=== PATIENT | male | born 1955 | race Caucasian/White ===

== ENCOUNTER 2017-01-21 15:46 | Observation (INO) | payer BC ==
[~2017-01-21] VITALS: Ht 175.3 cm; Wt 80.0 kg
[~2017-01-21 15:46] MED LIST: AMBI10TA PO; ASPI81 PO; ATOR20TA42 PO; CLOP75 PO; FENO50TA PO; FISH1000 PO; IOHEXOL 350 MG/ML 100 ML BTL (for Cath Lab) OTHER ONE; METO25 PO; NITR0.4S SL; TAB-TAB PO; TYLE3 PO
[2017-01-21 15:51] VITALS: BP 164/84; PULSE 75; RESP 16; TEMP 98; O2SAT 97
[2017-01-21] MEDS ORDERED: SODIUM CHLORIDE 0.9% FLUSH 10 ML FLUSH IVF PRN (16:00)
[2017-01-21] MEDS ORDERED: ONDANSETRON HCL 4 MG/2 ML VIAL IV PUSH ONE (16:00)
[2017-01-21] MEDS ORDERED: MORPHINE SULFATE 4 MG/ML INJ IV PUSH ONE (16:00)
[2017-01-21] MEDS ORDERED: NITROGLYCERIN 2% OINT 1 GM PACKET TOP ONE (16:00)
[2017-01-21] MEDS ORDERED: NIAS1000 PO (16:01)
[2017-01-21] MEDS ORDERED: METO-309 PO (16:01)
[2017-01-21] MEDS ORDERED: PLAV75TA29 PO (16:01)
[2017-01-21] MEDS ORDERED: ASPI81CH CHEW (16:01)
[2017-01-21] MEDS ORDERED: FENO50TA PO (16:01)
[2017-01-21 16:12] VITALS: O2SAT 98
[2017-01-21] MEDS ORDERED: ASPIRIN 81 MG CHEW TAB CHEW ONE (16:30)
[2017-01-21 16:33] LABS: AUTOMATED NEUTROPHIL # 4.6 TH/MM3 (1.8-7.7); BASOPHIL % 0.4 % (0.0-2.0); EOSINOPHIL # 0.1 TH/MM3 (0-0.4); EOSINOPHIL % 1.6 % (0.0-4.0); HEMATOCRIT 39.2 % (39.0-51.0); HEMO FLAGS DIFF FINAL; LYMPH % 27.1 % (9.0-44.0); LYMPHOCYTE # 1.9 TH/MM3 (1.0-4.8); MEAN CELL VOLUME 93.3 FL (80.0-100.0); MEAN CORPUSCULAR HEMOGLOBIN 32.5 PG (27.0-34.0); MEAN CORPUSCULAR HGB CONC 34.8 % (32.0-36.0); MONO % 8.1 % (0.0-8.0); NEUT % 62.8 % (16.0-70.0); PLATELET COUNT 213 TH/MM3 (150-450); RED BLOOD COUNT 4.21 MIL/MM3 (4.50-5.90); RED CELL DISTRIBUTION WIDTH 12.5 % (11.6-17.2); WHITE BLOOD COUNT 7.2 TH/MM3 (4.0-11.0)
--- NOTE | 2017-01-21 16:39 | RADRPT ---
EXAM DATE/TIME: 01/21/2017 16:14 [place] COMPARISON: No previous studies available for comparison. INDICATIONS : Chest pain that started this morning in left chest. MEDICAL HISTORY : None. SURGICAL HISTORY : None. ENCOUNTER: Initial ACUITY: 1 day PAIN SCORE: 2/10 LOCATION: Left chest FINDINGS: A single view of the chest demonstrates the lungs to be symmetrically aerated without evidence of mas s, infiltrate or effusion. The cardiomediastinal contours are unremarkable. Osseous structures are intact. CONCLUSION: No acute disease. Aneudy Garcia MD on January 21, 2017 at 16:37 Board Certified Radiologist. This report was verified electronically.
[2017-01-21 16:48] LABS: APTT (PATIENT) 23.9 SEC (24.3-30.1)
[2017-01-21 16:57] LABS: CHLORIDE 101 MEQ/L (98-107); POTASSIUM 3.7 MEQ/L (3.5-5.1); SODIUM (NA) 136 MEQ/L (136-145)
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
[2017-01-21 17:01] LABS: ANION GAP 10 MEQ/L (5-15); BICARBONATE 25.1 MEQ/L (21.0-32.0); BLOOD UREA NITROGEN 12 MG/DL (7-18); MAGNESIUM 2.2 MG/DL (1.5-2.5)
[2017-01-21 17:04] LABS: GLOMERULAR FILTRATION RATE 80 ML/MIN (>89)
[2017-01-21 17:25] VITALS: BP 140/81; PULSE 58; RESP 14; O2SAT 97
[2017-01-21 17:34] LABS: CREATINE KINASE 112 U/L (39-308)
[2017-01-21] MEDS ORDERED: ONDANSETRON HCL 4 MG/2 ML VIAL IVP PRN (18:15)
[2017-01-21] MEDS ORDERED: LACTULOSE SYRUP 20 GM/30 ML CUP PO PRN (18:15)
[2017-01-21] MEDS ORDERED: MORPHINE SULFATE 4 MG/ML INJ IV PRN (18:15)
[2017-01-21] MEDS ORDERED: MAGNESIUM HYDROXIDE SUSP 30 ML CUP PO PRN (18:15)
[2017-01-21] MEDS ORDERED: NALOXONE HCL 0.4 MG/ML AMP IV PRN (18:15)
[2017-01-21] MEDS ORDERED: SODIUM CHLORIDE 0.9% FLUSH 10 ML FLUSH IV FLUSH PRN (18:15)
[2017-01-21] MEDS ORDERED: NITROGLYCERIN 0.4 MG SL 25 TABS/BTL SL PRN (19:15)
--- NOTE | 2017-01-21 19:21 | HHI.HP ---
[facility] Service [facility] Primary Care Physician Jason Pérez MD Admission Diagnosis Chest Pain Diagnoses: (1) Chest pain Diagnosis: Principal (2) Coronary artery disease Diagnosis: Principal (3) [place] (myocardial infarction) Diagnosis: Secondary (4) Hyperlipidemia Diagnosis: Secondary Travel History International Travel<30 Days: No Contact w/Intl Traveler <30 Da: No Traveled to Known Affected Are: No History of Present Illness Mr. Tobias is a 61-year-old male. He is in the emergency room today because of episodes of angina today. He has a history of coronary artery disease and has had 3 coronary stents in the ears 1999, 2004, and 2009. His last stress test was in 2013 and did not show any abnormalities to indicate a repeat stent at that time. 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 This morning he had an episode of severe chest pain that radiated to his left arm and right shoulder. The pain was tight and felt similar to his myocardial infarction that he had in 1999. She rested and the pain resolved. He's had several recurrent episodes of this throughout the day and decided to come into the emergency department. Pain is not reproducible with movement or deep breathing. He has a history of smoking in the past (type) and quit in year 1999 when he had a myocardial infarction. No other complaints. Family history is positive for coronary artery disease, [place], and CHF in his father. No history of diabetes. Review of Systems Constitutional: DENIES: Fatigue, Fever, Chills Eyes: DENIES: Blurred vision, Diplopia, Eye inflammation, Vision loss Ears, nose, mouth, throat: DENIES: Tinnitus, Hearing loss, Vertigo Respiratory: DENIES: Cough, Wheezing, Sputum production Cardiovascular: COMPLAINS OF: Chest pain, DENIES: Palpitations, Syncope Gastrointestinal: DENIES: Abdominal pain, Black stools, Bloody stools Musculoskeletal: DENIES: Joint pain, Muscle aches, Stiffness Integumentary: DENIES: Abnormal pigmentation Hematologic/lymphatic: DENIES: Bruising Immunologic/allergic: DENIES: Eczema Neurologic: DENIES: Abnormal gait, Headache, Paresthesias Psychiatric: DENIES: Anxiety, Confusion, Hallucinations Past Family Social History Past Medical History Old [place], 1999 coronary artery disease Hyperlipidemia Past Surgical History Tonsillectomy Appendectomy Coronary stents in years 1999, 2004, and 2009 Reported Medications Reported Meds & Active Scripts Active Reported Tricor (Fenofibrate) 145 Mg Tab 145 Mg PO EVERY OTHER DAY Takw with food. Niaspan (Niacin ER) 1,000 Mg Tab 500 Mg PO HS Plavix (Clopidogrel Bisulfate) 75 Mg Tab 75 Mg PO DAILY Aspirin 81 Mg Chew 81 Mg CHEW DAILY Lopressor (Metoprolol Tartrate) 50 Mg Tab 12.5 Mg PO BID Allergies: Coded Allergies: No Known Allergies (Verified , 01/21/17) Family History CHF and myocardial infarction and coronary artery disease in father Pituitary tumor and mother Social History Ld-kbpfowp-gh-alcohol-abuse- Zy-bkppszq-ya-drug-abuse- Kemozpx-nq-hsepnxc, patient quit in year 1999 Physical Exam Vital Signs Vital Signs Date Time Temp Pulse Resp B/P (MAP) Pulse Ox O2 Delivery O2 Flow Rate FiO2 01/21/17 17:25 58 14 140/81 (100) 97 Room Air 01/21/17 16:35 96 Room Air 01/21/17 16:30 14 01/21/17 16:12 98 Room Air 01/21/17 15:51 98.0 75 16 164/84 (110) 97 Physical Exam GENERAL: NAD, A&Ox3 HEAD: Normocephalic. NECK: Supple, trachea midline. No lymphadenopathy. EYES: No scleral icterus. No injection or drainage. CARDIOVASCULAR: Regular rate and rhythm without murmurs, gallops, or rubs. RESPIRATORY: Breath sounds equal bilaterally. No accessory muscle use. GASTROINTESTINAL: Abdomen soft, non-tender, nondistended. MUSCULOSKELETAL: No cyanosis, or edema. No tenderness is starting SKIN: Warm and dry. NEURO: No focal neurological deficitis. Laboratory Laboratory Tests Test 01/21/17 16:09 White Blood Count 7.2 Red Blood Count 4.21 Hemoglobin 13.7 Hematocrit 39.2 Mean Corpuscular Volume 93.3 Mean Corpuscular Hemoglobin 32.5 Mean Corpuscular Hemoglobin Concent 34.8 Red Cell Distribution Width 12.5 Platelet Count 213 Mean Platelet Volume 8.0 Neutrophils (%) (Auto) 62.8 Lymphocytes (%) (Auto) 27.1 Monocytes (%) (Auto) 8.1 Eosinophils (%) (Auto) 1.6 Basophils (%) (Auto) 0.4 Neutrophils # (Auto) 4.6 Lymphocytes # (Auto) 1.9 Monocytes # (Auto) 0.6 Eosinophils # (Auto) 0.1 Basophils # (Auto) 0.0 CBC Comment DIFF FINAL Differential Comment Prothrombin Time 11.0 Prothromb Time International Ratio 1.0 Activated Partial Thromboplast Time 23.9 Blood Urea Nitrogen 12 Creatinine 0.95 Random Glucose 123 Calcium Level 9.0 Magnesium Level 2.2 Sodium Level 136 Potassium Level 3.7 Chloride Level 101 Carbon Dioxide Level 25.1 Anion Gap 10 Estimat Glomerular Filtration Rate 80 Total Creatine Kinase 112 Creatine Kinase MB 1.0 Troponin I LESS THAN 0.02 Result Diagram: 01/21/17 1609 01/21/17 160 Lonnie VTE Risk Assessment Caprin VTE Risk Assessment: Mod/High Risk (score >= 2) Caprini Risk Assessment Model Point Value = 1 Point Value = 2 Point Value = 3 Point Value = 5 Age 41-60 Minor surgery BMI > 25 kg/m2 Swollen legs Varicose veins or History of unexplained or recurrent spontaneous Oral contraceptives or hormone replacement Sepsis (< 1 month) Serious lung disease, including pneumonia (< 1 month) Abnormal pulmonary function Acute myocardial infarction Congestive heart failure (< 1 month) History of inflammatory bowel disease Medical patient at bed rest Age 61-74 Arthroscopic surgery Major open surgery (> 45 min) Laparoscopic surgery (> 45 min) Malignancy Confined to bed (> 72 hours) Immobilizing plaster cast Central venous access Age >= 75 History of VTE Family history of VTE Factor V Leiden Prothrombin [id number] Lupus anticoagulant Anticardiolipin antibodies Elevated serum homocysteine Heparin-induced thrombocytopenia Other congenital or acquired thrombophilia Stroke (< 1 month) Elective arthroplasty Hip, pelvis, or leg fracture Acute spinal cord injury (< 1 month) Prophylaxis Regimen Total Risk Factor Score Risk Level Prophylaxis Regimen 0-1 Low Early ambulation 2 Moderate Order ONE of the following: *Sequential Compression Device (SCD) *Heparin 5000 units SQ BID 3-4 Higher Order ONE of the following medications: *Heparin 5000 units SQ TID *Enoxaparin/Lovenox 40 mg SQ daily (WT < 150 kg, CrCl > 30 mL/min) *Enoxaparin/Lovenox 30 mg SQ daily (WT < 150 kg, CrCl > 10-29 mL/min) *Enoxaparin/Lovenox 30 mg SQ BID (WT < 150 kg, CrCl > 30 mL/min) AND/OR *Sequential Compression Device (SCD) 5 or more Highest Order ONE of the following medications: *Heparin 5000 units SQ TID (Preferred with Epidurals) *Enoxaparin/Lovenox 40 mg SQ daily (WT < 150 kg, CrCl > 30 mL/min) *Enoxaparin/Lovenox 30 mg SQ daily (WT < 150 kg, CrCl > 10-29 mL/min) *Enoxaparin/Lovenox 30 mg SQ BID (WT < 150 kg, CrCl > 30 mL/min) AND *Sequential Compression Device (SCD) Assessment and Plan Problem List: (1) Old [place] (myocardial infarction) ICD Code: I25.2 - Old myocardial infarction (2) Chest pain ICD Code: R07.9 - Chest pain, unspecified (3) Hyperlipidemia ICD Code: E78.5 - Hyperlipidemia, unspecified (4) Coronary artery disease ICD Code: I25.10 - Atherosclerotic heart disease of [place] coronary artery without angina pectoris Assessment and Plan Assessment and plan 61-year-old male with history of coronary artery disease comes to the emergency department secondary to chest pain Angina [place] Coronary artery disease History of coronary stents 3 Evaluate for ACS Follow cardiac enzymes Aspirin daily When necessary oxygen When necessary morphine for pain. When necessary nitroglycerin Follow on telemetry Cardiology consult Plavix Hyperlipidemia Continue TriCor Hold niacin for now Statin Lipid profile in a.m. DVT prophylaxis Roby Woods MD Jan 21, 2017 19:21
[2017-01-21] MEDS ORDERED: PILL SPLITTER OTHER PRN (19:30)
[2017-01-21 19:37] VITALS: BP 140/83; PULSE 68; RESP 18; O2SAT 97
[2017-01-21 20:00] VITALS: BP 121/85; PULSE 61; RESP 20; TEMP 96.7; O2SAT 96
[2017-01-21] MEDS ORDERED: ENOXAPARIN SODIUM 40 MG/0.4 ML SYRINGE SQ SCH (20:00)
[2017-01-21] MEDS ORDERED: ATORVASTATIN 10 MG TAB PO SCH (21:00)
[2017-01-21] MEDS: METOPROLOL TARTRATE 25 MG TAB PO SCH (21:02)
[2017-01-21] MEDS: SODIUM CHLORIDE 0.9% FLUSH 10 ML FLUSH IV FLUSH SCH (21:02)
[2017-01-21 22:54] LABS: CREATINE KINASE 84 U/L (39-308)
[2017-01-21 23:00] VITALS: PULSE 58
[2017-01-22] VITALS (13 sets, daily range): BP systolic 118–159; BP diastolic 76–91; PULSE 51–76; RESP 16–18; TEMP 96.5–98.6; O2SAT 95–99
[2017-01-22 04:46] LABS: CREATINE KINASE 77 U/L (39-308)
[2017-01-22 05:57] LABS: AUTOMATED NEUTROPHIL # 3.2 TH/MM3 (1.8-7.7); BASOPHIL % 0.5 % (0.0-2.0); EOSINOPHIL # 0.2 TH/MM3 (0-0.4); EOSINOPHIL % 2.7 % (0.0-4.0); HEMATOCRIT 37.8 % (39.0-51.0); HEMO FLAGS DIFF FINAL; LYMPH % 34.7 % (9.0-44.0); LYMPHOCYTE # 2.1 TH/MM3 (1.0-4.8); MEAN CELL VOLUME 93.3 FL (80.0-100.0); MEAN CORPUSCULAR HEMOGLOBIN 32.2 PG (27.0-34.0); MEAN CORPUSCULAR HGB CONC 34.5 % (32.0-36.0); MONO % 9.2 % (0.0-8.0); NEUT % 52.9 % (16.0-70.0); PLATELET COUNT 186 TH/MM3 (150-450); RED BLOOD COUNT 4.05 MIL/MM3 (4.50-5.90); RED CELL DISTRIBUTION WIDTH 12.6 % (11.6-17.2); WHITE BLOOD COUNT 6.1 TH/MM3 (4.0-11.0)
[2017-01-22 05:59] LABS: CHLORIDE 102 MEQ/L (98-107); POTASSIUM 3.6 MEQ/L (3.5-5.1); SODIUM (NA) 136 MEQ/L (136-145)
[2017-01-22 06:03] LABS: ANION GAP 8 MEQ/L (5-15); BICARBONATE 25.7 MEQ/L (21.0-32.0); BLOOD UREA NITROGEN 13 MG/DL (7-18)
[2017-01-22 06:05] LABS: ALT (GPT) 24 U/L (12-78)
[2017-01-22 06:06] LABS: AST (GOT) 20 U/L (15-37); GLOMERULAR FILTRATION RATE 98 ML/MIN (>89)
[2017-01-22 06:07] LABS: TOTAL BILIRUBIN ADULT 0.6 MG/DL (0.2-1.0)
[2017-01-22 06:09] LABS: ALKALINE PHOSPHATASE 57 U/L (45-117)
--- NOTE | 2017-01-22 08:12 | EKG ---
Date Performed: 01/22/2017 Time Performed: 04:29:06 PTAGE: 61 years EKG: SINUS BRADYCARDIA LOW QRS VOLTAGE IN EXTREMITY LEADS NONSPECIFIC T-WAVE ABNORMALITY BORDERL INE ECG PREVIOUS TRACING : 01/21/2017 22.11 No significant change from previous tracing noted. DOCTOR: Shahram Jean Interpretating Date/Time 01/22/2017 08:11:56
[2017-01-22] MEDS: SODIUM CHLORIDE 0.9% FLUSH 10 ML FLUSH IV FLUSH SCH ×2 (08:17→20:11)
[2017-01-22] MEDS: METOPROLOL TARTRATE 25 MG TAB PO SCH ×2 (09:00→20:11)
[2017-01-22] MEDS ORDERED: ASPIRIN 81 MG CHEW TAB CHEW SCH (09:00)
[2017-01-22 09:45] LABS: HDL CHOLESTEROL 34.6 MG/DL (40.0-60.0)
--- NOTE | 2017-01-22 11:36 | EKG ---
Date Performed: 01/21/2017 Time Performed: 22:11:23 PTAGE: 61 years EKG: Sinus rhythm LOW QRS VOLTAGE IN EXTREMITY LEADS POSSIBLE INFERIOR MYOCARDIAL INFARCTION BORDERLINE ECG PREVIOUS TRACING : 01/21/2017 15.52 No significant change from previous tracing noted. DOCTOR: Shahram Jean Interpretating Date/Time 01/22/2017 11:34:44
[2017-01-22] MEDS: CLOPIDOGREL 75 MG TAB PO SCH (11:40)
--- NOTE | 2017-01-22 11:47 | EKG ---
Date Performed: 01/21/2017 Time Performed: 15:52:33 PTAGE: 61 years EKG: Sinus rhythm POSSIBLE INFERIOR MYOCARDIAL INFARCTION ABNORMAL ECG NO PREVIOUS TRACING DOCTOR: Shahram Jean Interpretating Date/Time 01/22/2017 11:46:56
--- NOTE | 2017-01-22 13:21 | HHI.PR ---
Subjective Remarks Cardiac enzymes are negative. EKG changes are nonspecific. No further episodes of chest pain. Patient is resting. Given his exertional chest pain yesterday and past medical history stress test has been deferred so he is evaluated by cardiology. Patient is being transferred to [facility] with his campaign marketing manager. Objective Vital Signs Date Time Temp Pulse Resp B/P (MAP) Pulse Ox O2 Delivery O2 Flow Rate FiO2 01/22/17 11:33 98.6 55 17 135/87 (103) 95 01/22/17 08:45 96.7 51 16 124/77 (93) 97 01/22/17 04:00 96.5 59 16 119/76 (90) 95 01/22/17 00:00 97.4 53 18 118/83 (95) 97 01/21/17 23:00 58 01/21/17 20:00 96.7 61 20 121/85 (97) 96 01/21/17 19:37 68 18 140/83 (102) 97 Room Air 01/21/17 17:25 58 14 140/81 (100) 97 Room Air 01/21/17 16:35 96 Room Air 01/21/17 16:30 14 01/21/17 16:12 98 Room Air 01/21/17 15:51 98.0 75 16 164/84 (110) 97 I/O 01/21/17 01/21/17 01/21/17 01/22/17 01/22/17 01/22/17 06:59 14:59 22:59 06:59 14:59 22:59 Output Total 800 ml Balance -800 ml Output Urine Total 800 ml # Voids 2 Result Diagram: 01/22/1727 01/22/17526 Objective Remarks GENERAL: NAD, A&Ox3 HEAD: Normocephalic. NECK: Supple, trachea midline. No lymphadenopathy. EYES: No scleral icterus. No injection or drainage. CARDIOVASCULAR: Regular rate and rhythm without murmurs, gallops, or rubs. RESPIRATORY: Breath sounds equal bilaterally. No accessory muscle use. GASTROINTESTINAL: Abdomen soft, non-tender, nondistended. MUSCULOSKELETAL: No cyanosis, or edema. SKIN: Warm and dry. NEURO: No focal neurological deficitis. A/P Problem List: (1) Old [place] (myocardial infarction) ICD Code: I25.2 - Old myocardial infarction (2) Chest pain ICD Code: R07.9 - Chest pain, unspecified (3) Hyperlipidemia ICD Code: E78.5 - Hyperlipidemia, unspecified (4) Coronary artery disease ICD Code: I25.10 - Atherosclerotic heart disease of [place] coronary artery without angina pectoris Assessment and Plan Assessment and plan 61-year-old male with history of coronary artery disease comes to the emergency department secondary to chest pain. Negative cardiac enzymes. No overt signs of acute RI on EKG. Transfer to [facility] for further workup which may include stress test or cardiac catheter per cardiology discretion. Angina [place] Coronary artery disease History of coronary stents 3 Continue workup at [facility] Negative cardiac enzymes Aspirin daily When necessary oxygen When necessary morphine for pain. When necessary nitroglycerin Follow on telemetry Cardiology following Plavix Hyperlipidemia Continue TriCor Hold niacin for now Statin Lipid profile in a.m. DVT prophylaxis Roby Woods MD Jan 22, 2017 13:21
[2017-01-22] MEDS ORDERED: HEPARIN-NS/PF INJ 1,000 ML ONE (14:53)
[2017-01-22] MEDS ORDERED: MIDAZOLAM HCL 2 MG/2 ML VIAL ONE ×4 (14:53→16:12)
[2017-01-22] MEDS ORDERED: HEPARIN SODIUM - IV 10,000 UNITS/10 ML VIAL ONE (15:31)
[2017-01-22] MEDS ORDERED: HEPARIN-NS/PF INJ 500 ML ONE (16:28)
[2017-01-22] MEDS ORDERED: CLOPIDOGREL 300 MG TAB ONE (16:49)
[2017-01-22] MEDS ORDERED: ASPIRIN 81 MG CHEW TAB ONE (16:49)
--- NOTE | 2017-01-22 17:13 | CATHPROC ---
[facility] HIS Report Study Information Study Number Admission Scheduled Start Study Start [id number] Jan 21 2017 6:10PM 01/22/2017 Jan 22 2017 2:56PM [place] Service Cardiac Catheterization Admit Source Facility Department Transfer in from another acute care facility [facility] Physician and Clinical Staff Initial Celina Roy Supervisor [employer] Arcenio RN, Luis Recorder Melissa Tucker,RT(R) Scrub Alen Ingram RCIS(BS) Procedures Performed Procedure Location (Site) Vessel Name Coronary Angiograms LCA Left Coronary Coronary Angiograms RCA Right Coronary L Heart Cath LV Gram-hand inj. LV LV Ventricle PTCA RCA Right Coronary PTCA RCA Mid Right Coronary Wire insertion Fem Art (right) Femoral Art Equipment Time Proof Machine Operator Description Size Mfg Part Number Used/Scraped [id number] 15:51 [employer] WIRE, ASAHI PROWATER 180CM 180CM Used *[id number] WIRE, BALANCE MIDDLEWEIGHT [id number] 16:24 [employer] 190CM Used 190CM *[id number] TRANSDUCER, TRUWAVE [id number] 15:14 FISHER BRADSHAW * Used W/STOCKCOCK *[id number] 15:30 [employer] AL 1 GUIDE CATHETER RUNWAY FR 6 Used *[id number] 16:07 [employer] BALLOON, 2.5 8MM EMERGE MR 2.5 8MM Used *[id number] 16:19 [employer] BALLOON, 3.0 12MM EMERGE MR 3.0 12MM Used *[id number] [id number] *[id number] 538-476 *9205243 538-420 *9152873 538-420 *1350151 538-453S *[id number] 538-453S *5859873 [phone] *[id number] 650352 16:49 DAIG/ST. ELEUTERIO MEDICAL ANGIOSEAL, FR6 VIP FR 6 Used *[id number] 15:14 MEDLINE INDUSTRIES PACK, CCL CUSTOM * Used *[id number] 15:14 MEDLINE PACER PEN, SKIN DUAL W/ RULER * Used *[id number] BALLOON, 3.0 X 12MM NC [id number] 15:56 MEDTRONIC 12MM Used EUPHORA *[id number] 15:57 [employer] MEDICAL 30 ANNEMARIE INDEFLATOR Used *[id number] 15:31 [employer] MEDICAL SHEATH, FR6.5 PRELUDE 11CM FR 6.5 038ACT Used *[id number] 15:14 [employer] MEDICAL WIRE, 3MMJ .035 180CM 180CM Used *[id number] PROBE COVER, STERILE [id number] 15:14 [employer] MEDICAL * Used ULTRASOUND W/ GEL *[id number] 15:14 NAMIC MANIFOLD, 4 PORT * Used *[id number] 15:14 NYCOMED OMNIPAQUE, 350 MG, 150ML 150ML [id number] Used 16:50 [employer]COMED OMNIPAQUE, 350 MG, 150ML 150ML [id number] Used [id number] 15:14 [facility] BLANKET,WARM AIR CCL * Used *[id number] 15:14 TERUMO MEDICAL SHEATH, FR4 TERUMO (10CM) FR 4 Used *[id number] 15:28 [employer] PRIME WIRE, VERRATA 185CM 185CM 41629 *[id number] Used Equipment Model, Serial, Lot Number and Expiration Data Description Model Number Serial Number Lot Number Expiration Date AL 1 GUIDE CATHETER RUNWAY [id number] 07-15-2019 BALLOON, 2.5 8MM EMERGE MR [id number] 08-08-2019 BALLOON, 3.0 X 12MM [place] [id number] 11-24-2018 EUPHORA BALLOON, 3.0 12MM EMERGE MR [id number] 08-22-2019 History: Current Medications Medication Dosage/Unit Route Frequency Last Date/Time Taken ASA LOPRESSOR PLAVIX LOVENOX Beta Mk History: Allergies Allergy Reaction No Known Allergies History: Risk Factors Family History of Hypertension Dyslipidemia Previous [place] Previous Heart Failure Premature CAD Yes Yes Yes Yes No Prior PCI Prior PCIDate Prior CABG Yes 05/17/2009 No Cerebrovascular Peripheral Artery Chronic Lung On Dialysis Diabetes Disease Disease Disease No No No No No History: Symptoms/Diagnosis Selection Items Chest pain History: Stress Tests Stress or Imaging Studies Performed No History: Other Current Smoker Method Quit No Cigarettes 17 Years Ago Labs Hgb (g/dl) Hct (%) RBC (MIL/MM3) WBC (l/cumm) Platelets (thousands) 11.60-17.00 35.00-51.00 4.00-5.90 4.00-11.00 150.00-450.00 13.1 37.8 4 6.1 186 Glucose (mg/dl) BUN (mg/dl) Creatinine (mg/dl) BUN:Creatinine (1:x) 74.00-106.00 7.00-18.00 0.50-1.30 10.00-20.00 110 13 0.8 16.3 Na (meq/l) K (meq/l) Cl (meq/l) CO2 (mmol/L) Ca (mg/dl) 136.00-145.00 3.50-5.10 98.00-107.00 21.00-32.00 8.50-10.10 136 3.6 102 25.7 8.3 PT (sec) PTT (sec) INR (PTT:PT) 9.80-11.60 24.30-30.10 0.90-1.10 11 23.9 1 Troponin I (ng/ml) CPK (u/l) CPK-MB (ng/ML) 0.02-0.05 26.00-308.00 0.50-3.60 0.02 77 1.0 Medication Medication Total Dose (Bolus/Oral) Medication Total Dosage/Unit ASPIRIN 325 mg FENTANYL 200 mcg HEPARIN 7000 units NTG (IC) 200 mcg PLAVIX 600 mg VERSED 7 mg Medications (Bolus/Oral) Medication Time Given Dosage/Unit Administered By Reason VERSED 01/22/2017 3:07:46 PM 2 mg Luis Rosas RN 2 mg VERSED given by Luis Rosas RN in Left Antecubital via Peripheral IV. FENTANYL 01/22/2017 3:08:00 PM 50 mcg Luis Rosas RN 50 mcg FENTANYL given by Luis Rosas RN in Left Antecubital via Peripheral IV. FENTANYL 01/22/2017 3:14:10 PM 25 mcg Luis Rosas RN 25 mcg FENTANYL given by Luis Rosas RN via Peripheral IV. VERSED 01/22/2017 3:15:19 PM 1 mg Luis Rosas RN 1 mg VERSED given by Luis Rosas RN via Peripheral IV. HEPARIN 01/22/2017 3:32:04 PM 5000 units Luis Rosas RN 5000 units HEPARIN given by Luis Rosas RN via Peripheral IV. FENTANYL 01/22/2017 3:37:42 PM 25 mcg Luis Rosas RN 25 mcg FENTANYL given by Luis Rosas RN via Peripheral IV. VERSED 01/22/2017 3:38:39 PM 2 mg Luis Rosas RN 2 mg VERSED given by Luis Rosas RN via Peripheral IV. VERSED 01/22/2017 3:45:56 PM 2 mg Luis Rosas RN 2 mg VERSED given by Luis Rosas RN via Peripheral IV. HEPARIN 01/22/2017 4:15:39 PM 1000 units Luis Rosas RN 1000 units HEPARIN given by Luis Rosas RN via Peripheral IV. NTG (IC) 01/22/2017 4:18:44 PM 200 mcg Alen Ingram 200 mcg NTG (IC) given in lab by Alen Ingram RCIS(BS) via Intra-coronary. FENTANYL 01/22/2017 4:25:25 PM 50 mcg Luis Rosas RN 50 mcg FENTANYL given in lab by Luis Rosas RN via Peripheral IV. HEPARIN 01/22/2017 4:30:00 PM 1000 units Luis Rosas RN 1000 units HEPARIN given in lab by Luis Rosas RN via Peripheral IV. ASPIRIN 01/22/2017 4:47:08 PM 325 mg Luis Rosas RN 325 mg ASPIRIN given in lab by Luis Rosas RN via Subcutaneous. PLAVIX 01/22/2017 4:51:42 PM 600 mg Luis Rosas RN 600 mg PLAVIX given in lab by Luis Rosas RN via Oral. FENTANYL 01/22/2017 4:51:56 PM 50 mcg Luis Rosas RN 50 mcg FENTANYL given in lab by Luis Rosas RN via Peripheral IV. Medication (Drip) Medication Time Given Dosage/Unit Concentration/Unit Diluent (ml) Solution IV Solutions 01/22/2017 2:58:25 PM 0 mL (IV) 500 NaCl .9 Patient arrived on IV Solutions in Left Antecubital via Peripheral IV. Pump/Drip Flow = 20 ml/hr usin g NaCl .9. Initial Case Assessment Cardiovascular HR Rhythm NIBP Chest Pain 59 reg 163/99 2 Edema Present Skin color Skin None Normal Warm Circulatory - Right Pulses Dorsalis Pedis Femoral 3 3 Scale (0,1,2,3,4,d) Circulatory - Left Pulses Dorsalis Pedis Femoral 3 3 Scale (0,1,2,3,4,d) Circulatory - Lower Extremities Color Lower Right Color Lower Left Normal Normal Neurological State Oriented to time-place- Alert Moves all extremities person Respiration - General Respiration Rate SpO2 (%) (B/min) 7 97 Final Case Assessment Cardiovascular HR Rhythm NIBP 71 reg 168/95 Edema Present Skin color Skin None Normal Warm Circulatory - Right Pulses Dorsalis Pedis Femoral 3 3 Scale (0,1,2,3,4,d) Circulatory - Left Pulses Dorsalis Pedis Femoral 3 3 Scale (0,1,2,3,4,d) Circulatory - Lower Extremities Color Lower Right Color Lower Left Normal Normal Neurological State Oriented to time-place- Alert Moves all extremities person Respiration - General Respiration Rate SpO2 (%) O2 (lpm) (B/min) 15 100 2 Chronological Log Time Study Chronological Log 14:45:54 Patient arrived via Bed. 14:45:59 Patient Name, D.O.B, / Armband Verified By R.N. 14:46:40 Pre-op and post- op instructions given; patient acknowledges understanding of instructions. 14:46:40 Verbal Stimulation=2 Physical Stimulation=2 Airway=2 Respiration=2 TOTAL=8. (0=absent, 1=li mited, 2=present) 14:57:06 Reference ECG taken Vitals capture started with the following parameters, Patient=Adult, Interval=5 min, Initial Pr pozpqs=325 mmHg, 14:57:08 Deflation Rate=5 mmHg, Cuff placed on Right Arm 14:57:59 Patient has been NPO for More than 6Hrs. 14:58:01 Skin Breakdown-none 14:58:17 Patient Warmer Placed on the Table. 14:58:18 A # 20 IV was noted in the Antecubital (left). Grade = 0 14:58:19 HR=75 bpm, EUUV=275/99 mmhg, SpO2=98.0 %, Resp=9 B/min, Pain=0, Javan=10, Teague=2 14:58:25 Patient arrived on IV Solutions in Left Antecubital via Peripheral IV. Pump/Drip Flow = 20 ml/hr using NaCl .9. 14:58:50 History and physical on the chart or being dictated. Assessment: Initial Case, HR=59 BPM, Rhythm=reg, UJJF=808/99 mmhg, Chest Pain=2, Edema=None, Co aravind=Normal, Skin = Warm Right Pulses: Evan Ped=3, Femoral=3 Left Pulses: Evan Ped=3, Femoral=3 14:58:51 Lower Right Extremities: Color=Normal Lower Left Extremities: Color=Normal Neurological: State=Alert, Ox3, LANDIS Respiration: Resp=7 B/min, SpO2=97 % 14:59:37 Bilateral groins prepped with 2% chlorhexidine, and with a 3 min. waiting time. 15:02:50 HR=61 bpm, SPNV=633/87 mmhg, SpO2=98.0 %, Resp=8 B/min, Pain=0, Javan=10, Teague=2 15:03:32 Pressure channel 1 zeroed. 15:07:45 HR=58 bpm, EMXF=521/86 mmhg, SpO2=98.0 %, Resp=8 B/min, Pain=0, Javan=10, Teague=2 15:07:46 2 mg VERSED given by Luis Rosas RN in Left Antecubital via Peripheral IV. 15:08:00 50 mcg FENTANYL given by Luis Rosas RN in Left Antecubital via Peripheral IV. 15:08:29 MD arrived. Time Out. Correct patient, correct procedure,correct physician, ,power injector not loaded with contrast with surgical 15:09:19 team present. Time Out Concurred by MD, individual staff and CRITICAL CARE RN in procedure 15:09:38 Case Start 15:09:40 Verbal Stimulation=2 Physical Stimulation=2 Airway=2 Respiration=2 TOTAL=8. (0=absent, 1=li mited, 2=present) 15:12:48 HR=75 bpm, CTQT=333/89 mmhg, SpO2=98.0 %, Resp=10 B/min, Pain=0, Javan=10, Teague=2 15:13:26 Access site was Right Femoral Artery. with ultrasound device 15:13:32 A wire was inserted via Fem Art (right). 15:13:35 A SHEATH, FR4 TERUMO (10CM) FR 4 was advanced into the Fem Art (right) using the Percutaneo us technique. 15:14:10 25 mcg FENTANYL given by Luis Rosas RN via Peripheral IV. A JL 4.0 INFINITI CATHETER FR 4 was advanced over a wire. OMNIPAQUE, 350 MG, 150ML 150ML was us ed for 15:14:15 injections. 15:15:19 1 mg VERSED given by Luis Rosas RN via Peripheral IV. Recorded Pressure: Ao, HR=72, Condition=Condition 1 15:15:57 (Aorta) Ao 145/76/104 15:16:14 The LCA was injected and visualized at various angles. OMNIPAQUE, 350 MG, 150ML 150ML used . 15:16:24 power injector loaded now by terese rosas and verified by vamsi ingram 15:16:56 Catheter was removed 15:17:43 HR=71 bpm, SPSP=828/84 mmhg, SpO2=97.0 %, Resp=11 B/min, Pain=0, Javan=10, Teague=2 A 3DRC INFINITI CATHETER FR 4 was advanced over a wire. OMNIPAQUE, 350 MG, 150ML 150ML was used for 15:18:02 injections. 15:18:22 The RCA was injected and visualized at various angles. OMNIPAQUE, 350 MG, 150ML 150ML used . 15:22:42 HR=74 bpm, UEUH=492/86 mmhg, SpO2=98.0 %, Resp=10 B/min, Pain=0, Javan=10, Teague=2 15:26:54 Catheter was removed 15:27:43 HR=70 bpm, UXXI=590/79 mmhg, SpO2=98.0 %, Resp=10 B/min, Pain=0, Javan=10, Teague=2 A PIGTAIL ANG. INFINITI CATHETER FR 4 was advanced over a wire. OMNIPAQUE, 350 MG, 150ML 150ML was used 15:28:00 for injections. Recorded Pressure: LV, HR=69, Condition=Condition 1 15:28:36 (Left Ventricle) LV 136/5/11 15:29:05 The LV was manually injected with 8 cc's and visualized. OMNIPAQUE, 350 MG, 150ML 150ML use d. Recorded Pressure: LV, Ao, HR=68, Condition=Condition 1 15:29:15 (Left Ventricle) LV 138/6/11, (Aorta) Ao 139/69/100 15:29:37 Catheter was removed A SHEATH, FR6.5 PRELUDE 11CM FR 6.5 was exchanged in the Fem Art (right). This was necessary in order to 15:30:59 accomodate a larger catheter. 15:32:04 5000 units HEPARIN given by Luis Rosas RN via Peripheral IV. 15:32:46 HR=69 bpm, YEKI=458/84 mmhg, SpO2=98.0 %, Resp=14 B/min, Pain=0, Javan=10, Teague=2 A AL 1 GUIDE CATHETER RUNWAY FR 6 was advanced over a wire. OMNIPAQUE, 350 MG, 150ML 150ML was used for 15:33:27 injections. 15:37:42 25 mcg FENTANYL given by Luis Rosas RN via Peripheral IV. 15:37:49 HR=71 bpm, TZEW=782/77 mmhg, SpO2=98.0 %, Resp=16 B/min, Pain=0, Javan=10, Teague=2 15:38:39 2 mg VERSED given by Luis Rosas RN via Peripheral IV. 15:39:13 Pressure channel 1 zeroed. 15:40:33 Activated Clotting Time Drawn 15:42:21 Pressure channel 1 zeroed. 15:42:46 HR=71 bpm, CBLP=254/85 mmhg, SpO2=98.0 %, Resp=21 B/min, Pain=0, Javan=10, Teague=2 15:45:06 A PRIME WIRE, VERRATA 185CM 185CM was inserted via Fem Art (right). 15:45:56 2 mg VERSED given by Luis Rosas RN via Peripheral IV. 15:46:44 ACT (Normal Range 90-180) = 269 15:46:58 Flow Wire was was placed in the RCA Mid. The FFR measures ~FFR~ percent. The IFR measures 0 .84 Percent. 15:47:45 HR=70 bpm, XLZY=610/84 mmhg, SpO2=97.0 %, Resp=16 B/min, Pain=0, Javan=10, Teague=2 15:50:58 A WIRE, ASAHI PROWATER 180CM 180CM was inserted via Fem Art (right). 15:52:48 HR=67 bpm, BKUP=593/84 mmhg, SpO2=98.0 %, Resp=15 B/min 15:55:38 Interventional wire has crossed the lesion A BALLOON, 3.0 X 12MM NC EUPHORA 12MM was inserted over WIRE, ASAHI PROWATER 180CM 180CM via th e RCA 15:56:07 Mid. 15:57:47 HR=69 bpm, RDPC=801/81 mmhg, SpO2=98.0 %, Resp=14 B/min, Pain=0, Javan=10, Teague=2 15:59:54 Balloon Removed. A BALLOON, 3.0 X 12MM NC EUPHORA 12MM was inserted over PRIME WIRE, VERRATA 185CM 185CM via the RCA 16:00:36 Mid. 16:02:48 HR=69 bpm, MMOJ=996/83 mmhg, SpO2=99.0 %, Resp=11 B/min, Pain=0, Javan=10, Teague=2 16:05:26 Balloon Removed. 16:07:23 A BALLOON, 2.5 8MM EMERGE MR 2.5 8MM was inserted over WIRE, ASAHI PROWATER 180CM 180CM via the RCA Mid. 16:07:51 HR=62 bpm, XFIY=586/91 mmhg, SpO2=98.0 %, Resp=16 B/min, Pain=0, Javan=10, Teague=2 A BALLOON, 2.5 8MM EMERGE MR 2.5 8MM over a WIRE, ASAHI PROWATER 180CM 180CM in the RCA Mid was inflated 16:10:15 using a 30 ANNEMARIE INDEFLATOR at 12 annemarie for 30 sec. A BALLOON, 2.5 8MM EMERGE MR 2.5 8MM over a WIRE, ASAHI PROWATER 180CM 180CM in the RCA Mid was inflated 16:11:59 using a 30 ANNEMARIE INDEFLATOR at 12 annemarie for 20 sec. A BALLOON, 2.5 8MM EMERGE MR 2.5 8MM over a WIRE, ASAHI PROWATER 180CM 180CM in the RCA Mid was inflated 16:12:21 using a 30 ANNEMARIE INDEFLATOR at 12 annemarie for 15 sec. 16:13:33 HR=64 bpm, GGEB=119/88 mmhg, SpO2=99.0 %, Resp=9 B/min, Pain=0, Javan=10, Teague=2 16:13:37 Balloon Removed. A BALLOON, 3.0 X 12MM NC EUPHORA 12MM was inserted over WIRE, ASAHI PROWATER 180CM 180CM via th e RCA 16:15:03 Mid. 16:15:39 1000 units HEPARIN given by Luis Rosas RN via Peripheral IV. 16:18:04 HR=65 bpm, RKEQ=743/85 mmhg, SpO2=98.0 %, Resp=15 B/min, Pain=0, Javan=10, Teague=2 16:18:44 200 mcg NTG (IC) given in lab by Alen Ingram RCIS(BS) via Intra-coronary. 16:19:06 Balloon Removed. A BALLOON, 3.0 12MM EMERGE MR 3.0 12MM was inserted over WIRE, ASAHI PROWATER 180CM 180CM via t he RCA 16:19:10 Mid. 16:21:50 The PRIME WIRE, VERRATA 185CM 185CM was removed. 16:22:55 HR=64 bpm, TAST=862/91 mmhg, SpO2=97.0 %, Resp=11 B/min, Pain=0, Javan=10, Teague=2 16:24:27 Balloon Removed. 16:25:25 50 mcg FENTANYL given in lab by Luis Rosas RN via Peripheral IV. 16:25:51 A WIRE, BALANCE MIDDLEWEIGHT 190CM 190CM was inserted via Fem Art (right). 16:27:56 HR=65 bpm, KGCS=245/90 mmhg, SpO2=98.0 %, Resp=15 B/min, Pain=0, Javan=10, Teague=2 A BALLOON, 3.0 12MM EMERGE MR 3.0 12MM was inserted over WIRE, BALANCE MIDDLEWEIGHT 190CM 190CM via 16:28:53 the RCA Mid. 16:30:00 1000 units HEPARIN given in lab by Luis Rosas RN via Peripheral IV. A BALLOON, 3.0 12MM EMERGE MR 3.0 12MM over a WIRE, BALANCE MIDDLEWEIGHT 190CM 190CM in the R CA was 16:30:02 inflated using a 30 ANNEMARIE INDEFLATOR at 10 annemarie for 45 sec. 16:30:56 ACT (Normal Range 90-180) = 236 A BALLOON, 3.0 12MM EMERGE MR 3.0 12MM over a WIRE, BALANCE MIDDLEWEIGHT 190CM 190CM in the R CA was 16:33:26 inflated using a 30 ANNEMARIE INDEFLATOR at 12 annemarie for 20 sec. 16:33:38 HR=66 bpm, LFRT=022/97 mmhg, SpO2=99.0 %, Resp=17 B/min, Pain=0, Javan=10, Teague=2 A BALLOON, 3.0 12MM EMERGE MR 3.0 12MM was inserted over WIRE, BALANCE MIDDLEWEIGHT 190CM 190CM via 16:37:07 the RCA Mid. A BALLOON, 3.0 12MM EMERGE MR 3.0 12MM over a WIRE, BALANCE MIDDLEWEIGHT 190CM 190CM in the RCA Mid 16:37:35 was inflated using a 30 ANNEMARIE INDEFLATOR at 14 annemarie for 30 sec. 16:37:58 HR=60 bpm, QHQC=166/97 mmhg, SpO2=99.0 %, Resp=13 B/min, Pain=0, Javan=10, Teague=2 A BALLOON, 3.0 12MM EMERGE MR 3.0 12MM over a WIRE, BALANCE MIDDLEWEIGHT 190CM 190CM in the RCA Mid 16:39:43 was inflated using a 30 ANNEMARIE INDEFLATOR at 12 annemarie for 20 sec. 16:40:46 Balloon Removed. 16:41:07 The RCA was injected and visualized at various angles. OMNIPAQUE, 350 MG, 150ML 150ML used . prowater 16:42:48 Wire removed 16:43:03 HR=58 bpm, GQOA=695/86 mmhg, VtK7=367.0 %, Resp=8 B/min, Pain=0, Javan=10, Teague=2 16:43:52 bmw Wire removed 16:44:02 guide Catheter was removed 16:47:08 325 mg ASPIRIN given in lab by Luis Rosas RN via Subcutaneous. 16:47:35 An injection in the Fem Art (right) was made through the SHEATH, FR6.5 PRELUDE 11CM FR 6.5. Assessment: Final Case, HR=71 BPM, Rhythm=reg, MVDR=216/95 mmhg, Edema=None, Color=Normal, Skin = Warm Right Pulses: Evan Ped=3, Femoral=3 Left Pulses: Evan Ped=3, Femoral=3 16:47:43 Lower Right Extremities: Color=Normal Lower Left Extremities: Color=Normal Neurological: State=Alert, Ox3, LANDIS Respiration: Resp=15 B/min, XhN2=936 %, O2=2 lpm 16:48:04 HR=68 bpm, DZTV=305/95 mmhg, SpO2=99.0 %, Resp=11 B/min, Pain=0, Javan=10, Teague=2 16:48:30 Catheter(s) removed without difficulty 16:48:44 ANGIOSEAL, FR6 VIP FR 6 placement in the Fem Art (right) 16:49:04 Case End 16:49:06 Sterile dressing applied to site 16:49:07 No case complications noted. 16:49:08 Cine recording checked. 16:49:10 Bedside Report will be given. 16:49:15 Contrast Scanned 16:49:38 A Left Heart Cath was performed. 16:51:42 600 mg PLAVIX given in lab by Luis Rosas RN via Oral. 16:51:56 50 mcg FENTANYL given in lab by Luis Rosas RN via Peripheral IV. 16:53:01 HR=65 bpm, KBZK=868/90 mmhg, SpO2=99.0 %, Resp=2 B/min, Pain=0, Javan=10, Teague=2 End Study - Contrast Media Used In Study Contrast Total Opened (mL) Total Used (mL) Total Wasted (mL) Omnipaque 200 200 0 End Study - Maximum Contrast Load Max Contrast Load (mL) 511.9 End Study - Radiation Exposure Fluoro Time (minutes) 29.6 End Study - Sheaths Sheaths Pulled By Sheath Hold Time (min) Celina Watson End Study - Patient Disposition Complications Transferred To Interventional Outcome No Regular Bed successful
[2017-01-22] MEDS ORDERED: SODIUM CHLOR 0.9% 1000 ML INJ 1,000 ML IV SCH (17:34)
[2017-01-22] MEDS ORDERED: BACITRACIN OINT 0.9 GM PKT TOP ONE (17:45)
[2017-01-22] MEDS ORDERED: MISC INFORMATION XX ONE (17:45)
[2017-01-22] MEDS ORDERED: SODIUM CHLOR 0.9% 250 ML INJ 250 ML IV PRN (17:45)
[2017-01-22] MEDS ORDERED: ASPIRIN 81 MG CHEW TAB PO SCH (17:45)
[2017-01-22] MEDS ORDERED: ACETAMINOPHEN 325 MG TAB PO PRN (17:45)
[2017-01-22] MEDS ORDERED: TEMAZEPAM 15 MG CAP PO PRN (17:45)
[2017-01-22] MEDS ORDERED: ATROPINE SULFATE 1 MG/ML VIAL IV PUSH PRN (17:45)
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
[2017-01-22] MEDS: MORPHINE SULFATE 4 MG/ML INJ IV PRN ×2 (20:11→22:57)
[2017-01-22] MEDS ORDERED: ATORVASTATIN 10 MG TAB PO SCH (21:00)
--- NOTE | 2017-01-22 21:21 | MP ---
cc: CELINA WATSON MD, GEORGE A. MD DATE OF SURGERY 01/22/17 INDICATION 1. Unstable angina. 2. Known severe coronary artery disease. Procedure: 1 Cath 4f bilateral coronaries and LV gram 2 Sedation 3 6 F guide, angioplasty with low pressure compliant balloon then high pressure noncompliant balloon, expansion of in stent restenosis of the 2010 m stent. 4. Ifr with ifr of .84 5. Femoral angiogram 6. Angioseal CONSENT Full informed consent was obtained prior to procedure. Risks of , bleeding, myocardial infarction, perforation, aspiration, renal failure, foreseen and unforeseen complications reviewed. The patient fully appeared to understand the risks. PROCEDURE IN DETAIL The patient and prepped and draped in usual manner. Right femoral artery was entered using a micropuncture technique with ultrasound; via the 4-Barbadian sheath , left and right coronary catheters were used to intubated left coronaries, the Pigtail catheter the left ventricle. Multiple angiographic views were carried out. The 4-Barbadian sheath was exchanged for a 6-Barbadian sheath. Via the 6-Barbadian sheath, an XRB right catheter was used to intubate the right coronary.A IFR wire was passed across the high-grade right coronary in -stent restenosis. A reading of 0.84 Was obtained and this was considered significant. Heparin was given prior to this. ACT was obtained. Further aliquots of heparin were given. We had a very difficult time passing a compliant balloon across the lesion, so we switched to a noncompliant balloon and finally a noncompliant 2.5 mm x 8 mm balloon was passed. Following this a 3.0 Compliant balloon was passed with difficulty after using a double wire technique and another wire, a BMW. Following this, a noncompliant balloon 3.0 was passed across the restenotic stent and inflated to 14 atmospheres for about 30 seconds. Multiple inflations were carried out. Finally, at the end of the procedure an angiogram was performed. Intracoronary nitroglycerin was used during the procedure. Finally a femoral angiogram was done and an Angio-Seal was placed in the usual manner and the patient returned to his room in stable condition. Findings: The left main was free of significant disease. The left anterior descending artery was a large vessel. The diagonal branch was tortuous and free of significant disease. The circumflex was medium to large sized. There was a medium to large first obtuse marginal branch that was tortuous and medium second obtuse marginal branch that was tortuous. The right coronary artery was dominant and large and was diffusely diseased throughout its Length. There was evidence of previously placed stents including a proximal, a mid Stent and distal stents. There was evidence of severe disease throughout the RCA vessels. In the proximal portion was a very eccentric 90% instent stenosis that was best seen in the HESS view. There was also further disease of approximately 50% in the distal vessel. Following this, another 50% stenosis.The distal vessel was Diffusely diseased. There was a large posterior descending artery and posterolateral branch. CONCLUSION Severe Single vessel disease of the right coronary noted. Successful angioplasty carried out of the 90% in-stent restenosis of the mid right coronary, reduced to 20%.It would be very difficult to pass a stent across this very tortuous lesion. If there is a recurrence we may consider bypass surgery. Celina Watson MD, FRCP,[facility] BELTRAN/ /5:01 PM /9:00 PM PROSPER
[2017-01-23] VITALS (11 sets, daily range): BP systolic 125–135; BP diastolic 70–75; PULSE 62–81; RESP 16–18; TEMP 97.8–98.5; O2SAT 96–97
--- NOTE | 2017-01-23 07:29 | PD.CARD.PN ---
Subjective Subjective Remarks UNEVENTFUL EVENING NO COMPLAINTS OF CHEST PAIN OR SOB Objective Medications Current Medications Medications (Trade) Dose Ordered Sig/Whitley Route Start Time Stop Time Status Last Admin (NS Flush) 2 ml UNSCH PRN IV FLUSH 01/21/17 18:15 (NS Flush) 2 ml BID IV FLUSH 01/21/17 21:00 01/22/17 20:11 (Zofran Inj) 4 mg Q6H PRN IVP 01/21/17 18:15 (Morphine Inj) 2 mg Q3H PRN IV 01/21/17 18:15 01/22/17 22:57 (Morphine Inj) 4 mg Q3H PRN IV 01/21/17 18:15 (Narcan Inj) 0.4 mg UNSCH PRN IV 01/21/17 18:15 (Milk Of Magnesia Liq) 30 ml Q12H PRN PO 01/21/17 18:15 (Lactulose Liq) 30 ml DAILY PRN PO 01/21/17 18:15 (Plavix) 75 mg DAILY PO 01/22/17 09:00 01/22/17 11:40 (Tricor) 145 mg EVERY OTHER DAY PO 01/23/17 09:00 (Lopressor) 12.5 mg BID PO 01/21/17 21:00 01/22/17 20:11 (Nitrostat Sl) 0.4 mg Q5M PRN SL 01/21/17 19:15 (Pill Splitter) 1 ea UNSCH PRN OTHER 01/21/17 19:30 (Tylenol) 325 mg Q4H PRN PO 01/22/17 17:45 (Restoril) 15 mg HS PRN PO 01/22/17 17:45 (Aspirin Chew) 81 mg DAILY PO 01/22/17 17:45 (Atropine Inj) 0.5 mg UNSCH PRN IV PUSH 01/22/17 17:45 Sodium Chloride 250 ml @ 500 mls/hr ONCE PRN IV 01/22/17 17:45 01/23/17 17:44 (Lipitor) 10 mg HS PO 01/22/17 21:00 01/22/17 20:11 Vital Signs / I&O Vital Signs Date Time Temp Pulse Resp B/P (MAP) Pulse Ox O2 Delivery O2 Flow Rate FiO2 01/23/17 06:16 65 01/23/17 05:59 66 01/23/17 04:20 69 01/23/17 03:40 98.5 66 16 125/75 (92) 97 01/23/17 03:32 70 01/23/17 02:33 81 01/23/17 01:07 63 01/23/17 00:04 62 01/22/17 23:49 98.4 71 18 159/84 (109) 97 01/22/17 23:00 74 01/22/17 22:00 66 01/22/17 21:00 66 01/22/17 20:00 70 01/22/17 20:00 98.1 74 16 141/85 (103) 99 01/22/17 19:00 76 01/22/17 18:01 69 01/22/17 17:00 98.6 66 18 156/79 (104) 95 01/22/17 17:00 66 01/22/17 13:33 96.9 62 18 134/91 (105) 98 01/22/17 11:33 98.6 55 17 135/87 (103) 95 01/22/17 08:45 96.7 51 16 124/77 (93) 97 I/O 01/22/17 01/22/17 01/22/17 01/23/17 01/23/17 01/23/17 07:00 15:00 23:00 07:00 15:00 23:00 Intake Total 650 ml Output Total 950 ml Balance -300 ml Intake Oral 650 ml Output Urine Total 950 ml Physical Exam NAD ANICTERIC. ELENA FLAT JVD LUNGS CLEAR RRR, NO MURMURS ABD BENIGN EXTR WITHOUT EDEMA Assessment and Plan Assessment and Plan ASHD, UNSTABLE ANGINA S/P PTCA RCA INSTENT RESTENOSIS PLAN: CONTINUE ASA AND PLAVIX NOT ON B-BLOCKERS 2/2 RESTING BRADYCARDIA PLEASE ALSO DC ON ATORVASTATIN 80 MG QD AND LISINOPRIL 5 MG QD INSTRUCTED TO FOLLOW UP WITH MIRIAM MORALES/DEAN 1-2 WEEKS FOR REEVALUATION OK TO DC FROM CARDIAC STANDPOINT Discussed Condition With PATIENT Helio Mohan MD Jan 23, 2017 07:29
[2017-01-23] MEDS: MORPHINE SULFATE 4 MG/ML INJ IV PRN (07:59)
[2017-01-23] MEDS ORDERED: LISI-519 PO (08:13)
[2017-01-23] MEDS ORDERED: ATOR1TAB18 PO (08:13)
--- NOTE | 2017-01-23 08:13 | HHI.DCPOC ---
Discharge Care Plan Diagnosis: (1) Coronary artery disease (2) Hyperlipidemia (3) Chest pain (4) Old [place] (myocardial infarction) Goals to Promote Your Health * To prevent worsening of your condition and complications * To maintain your health at the optimal level Directions to Meet Your Goals Take your medications as prescribed Follow your dietary instruction Follow activity as directed Keep your appointments as scheduled Take your immunizations and boosters as scheduled If your symptoms worsen call your PCP, if no PCP go to Urgent Care Center or Emergency Room Smoking is Dangerous to Your Health. Avoid second hand smoke Call the 24-hour hour crisis hotline for domestic abuse at Satya Pillai MD Jan 23, 2017 08:13
--- NOTE | 2017-01-23 08:21 | HHI.PR ---
Subjective Remarks Follow-up chest pain, coronary artery disease. The patient has no complaints at this time. He has been cleared for discharge by cardiology and wants to go home. Nice chest pain or dyspnea. Still has some discomfort at the site of catheterization in the right groin. Objective Vitals Vital Signs Date Time Temp Pulse Resp B/P (MAP) Pulse Ox O2 Delivery O2 Flow Rate FiO2 01/23/17 06:16 65 01/23/17 05:59 66 01/23/17 04:20 69 01/23/17 03:40 98.5 66 16 125/75 (92) 97 01/23/17 03:32 70 01/23/17 02:33 81 01/23/17 01:07 63 01/23/17 00:04 62 01/22/17 23:49 98.4 71 18 159/84 (109) 97 01/22/17 23:00 74 01/22/17 22:00 66 01/22/17 21:00 66 01/22/17 20:00 70 01/22/17 20:00 98.1 74 16 141/85 (103) 99 01/22/17 19:00 76 01/22/17 18:01 69 01/22/17 17:00 98.6 66 18 156/79 (104) 95 01/22/17 17:00 66 01/22/17 13:33 96.9 62 18 134/91 (105) 98 01/22/17 11:33 98.6 55 17 135/87 (103) 95 01/22/17 08:45 96.7 51 16 124/77 (93) 97 I/O 01/22/17 01/22/17 01/22/17 01/23/17 01/23/17 01/23/17 06:59 14:59 22:59 06:59 14:59 22:59 Intake Total 650 ml Output Total 950 ml Balance -300 ml Intake Oral 650 ml Output Urine Total 950 ml Result Diagram: 01/22/17 0527 01/22/17 0527 Imaging Last Impressions Chest X-Ray 01/21/17 1548 Signed Impressions: Service Date/Time: January 16:14 - CONCLUSION: No acute disease. Aneudy Garcia MD Objective Remarks General: No acute distress. Heart: Regular rate and rhythm. No murmur. Lungs: Clear to auscultation bilaterally. No wheezes, rales, or rhonchi. Breathing is nonlabored. Abdomen: Soft, nontender, nondistended. Extremities: No lower extremity edema. No erythema, swelling, or ecchymosis at the insertion site of the catheterization in the right groin. Psych: Alert and oriented. Procedures 01/22/17 cardiac catheterization Urinary Catheter: No Vascular Central Line Catheter: No A/P Problem List: (1) Old PR (myocardial infarction) ICD Code: I25.2 - Old myocardial infarction (2) Chest pain ICD Code: R07.9 - Chest pain, unspecified (3) Hyperlipidemia ICD Code: E78.5 - Hyperlipidemia, unspecified (4) Coronary artery disease ICD Code: I25.10 - Atherosclerotic heart disease of [place] coronary artery without angina pectoris Assessment and Plan 1. Chest pain, coronary artery disease: There is evidence of old PR. Appreciate cardiology recommendations. Serial cardiac enzymes are negative. Status post cardiac catheterization. Cleared for discharge by cardiology. Continue aspirin, statin, beta andreas, ABIOLA inhibitor. 2. Hyperlipidemia: Continue TriCor, statin. Triglycerides are significantly elevated. 3. DVT prophylaxis: Lovenox. Discharge Planning Discharge home in stable condition. Heart healthy, diabetic diet as recommended by cardiology. Activity as tolerated. Cardiology has advised placing the patient on atorvastatin 80 mg daily. Satya Pillai MD Jan 23, 2017 08:21
[2017-01-23] MEDS: METOPROLOL TARTRATE 25 MG TAB PO SCH (08:38)
[2017-01-23] MEDS: CLOPIDOGREL 75 MG TAB PO SCH (08:38)
[2017-01-23] MEDS: SODIUM CHLORIDE 0.9% FLUSH 10 ML FLUSH IV FLUSH SCH (09:00)
[2017-01-23] MEDS ORDERED: FENOFIBRATE 145 MG TAB PO SCH (09:00)
--- NOTE | 2017-01-23 13:53 | EKG ---
Date Performed: 01/23/2017 Time Performed: 05:59:36 PTAGE: 61 years EKG: Sinus rhythm Normal ECG PREVIOUS TRACING : 01/22/2017 04.29 Since prior tracing, sinus rate has increased. DOCTOR: Medhat Nash Interpretating Date/Time 01/23/2017 13:52:44
== END 2017-01-23 09:07 | disposition home or self-care (01) ==
LOC: PHED 15:46 → UNDOADMOB 18:10 → PHEDA 18:10 → PH3B 20:01 → PHEDA 20:01 → HCIS 01-22 14:12 → PH3B 01-22 14:12 → HCIN 01-22 17:21 → HCIS 01-22 17:21 → UNDODISOB 01-23 09:07
PROVIDERS: ADMIT Family Medicine; ATTEND Family Medicine
DX: I25.110 Atherosclerotic heart disease of native coronary artery with unstable angina pectoris (principal); I10 Essential (primary) hypertension; E78.5 Hyperlipidemia, unspecified; G47.30 Sleep apnea, unspecified; I25.2 Old myocardial infarction; Z79.82 Long term (current) use of aspirin; Z95.5 Presence of coronary angioplasty implant and graft; Z79.02 Long term (current) use of antithrombotics/antiplatelets; Z87.891 Personal history of nicotine dependence; Z79.899 Other long term (current) drug therapy
CPT/HCPCS: 71010; 80048; 80053; 80061; 82550; 82552; 83735; 84484; 85002; 85025; 85610; 85730; 92920; 93005; 93458; 93571; 96372; 96374; 96375; 96376; 99285; C1725; C1760; C1769; C1887; C1893; G0269; G0378; J1644; J1650; J2250; J2270; J2405; J3010; Q9967

== ENCOUNTER 2017-07-26 10:32 | Day surgery (SDC) | payer BC ==
[~2017-07-26] VITALS: Ht 175.3 cm; Wt 78.9 kg
[~2017-07-26 10:32] MED LIST changes: -AMBI10TA PO; +ASPI-516 CHEW; -ASPI81 PO; -ATOR20TA42 PO; +ATOR80TA45 PO; -CLOP75 PO; -FISH1000 PO; -IOHEXOL 350 MG/ML 100 ML BTL (for Cath Lab) OTHER ONE; +LISI-519 PO; +METO-309 PO; -METO25 PO; -NITR0.4S SL; +PLAV75TA29 PO; -TAB-TAB PO; -TYLE3 PO
[2017-07-26] MEDS ORDERED: IOHEXOL 350 MG/ML 100 ML BTL (for Cath Lab) OTHER ONE (10:33)
[2017-07-26] MEDS ORDERED: NS 1000P @30 MLS/HR (KVO) IV SCH (11:00)
[2017-07-26 11:09] VITALS: BP 122/77; PULSE 54; RESP 18; O2SAT 99
[2017-07-26] MEDS ORDERED: NITR1SUB3 SL (11:15)
[2017-07-26 11:42] LABS: AUTOMATED NEUTROPHIL # 2.1 TH/MM3 (1.8-7.7); BASOPHIL % 0.4 % (0.0-2.0); EOSINOPHIL % 0.5 % (0.0-4.0); HEMATOCRIT 37.8 % (39.0-51.0); HEMOGLOBIN 13.4 GM/DL (13.0-17.0); LYMPH % 40.5 % (9.0-44.0); LYMPHOCYTE # 1.8 TH/MM3 (1.0-4.8); MEAN CELL VOLUME 92.6 FL (80.0-100.0); MEAN CORPUSCULAR HEMOGLOBIN 32.8 PG (27.0-34.0); MEAN CORPUSCULAR HGB CONC 35.4 % (32.0-36.0); MEAN PLATELET VOLUME 7.4 FL (7.0-11.0); MONO % 11.9 % (0.0-8.0); MONOCYTE # 0.5 TH/MM3 (0-0.9); NEUT % 46.7 % (16.0-70.0); PLATELET COUNT 227 TH/MM3 (150-450); RED BLOOD COUNT 4.08 MIL/MM3 (4.50-5.90); RED CELL DISTRIBUTION WIDTH 13.2 % (11.6-17.2); WHITE BLOOD COUNT 4.4 TH/MM3 (4.0-11.0)
[2017-07-26 11:47] LABS: PROTHROMBIN TIME - PATIENT 10.2 SEC (9.8-11.6)
[2017-07-26 12:08] LABS: BICARBONATE 24.9 MEQ/L (21.0-32.0); CALCIUM 9.4 MG/DL (8.5-10.1); CREATININE 0.78 MG/DL (0.60-1.30)
[2017-07-26] MEDS ORDERED: HEPARIN-NS/PF FLUSH BAG 2,000 ML IV FLUSH ONE (12:19)
[2017-07-26] MEDS ORDERED: MIDAZOLAM HCL 2 MG/2 ML VIAL ONE (12:28)
--- NOTE | 2017-07-26 13:33 | CATHPROC ---
[employer] HIS Report Study Information Study Number Admission Scheduled Start Study Start [id number] Jul 26 2017 12:30PM 07/26/2017 Jul 26 2017 12:03PM [place] [facility] Cardiac Catheterization Admit Source Facility Department Other [facility] Physician and Clinical Staff Initial MD Watson, Celina Satellite Instruction Facilitator Farhan Burns RN Recorder Cindi Waterman,YOLETTE TECH2 Scrub Noé [place],RT(R) Procedures Performed Procedure Location (Site) Vessel Name Angiogram LV LV Ventricle Coronary Angiograms LCA Left Coronary Coronary Angiograms RCA Right Coronary Equipment Time Crematory Attendant Description Size Mfg Part Number Used/Scraped TRANSDUCER, TRUWAVE [id number] 12:20 [employer] * Used W/STOCKCOCK *[id number] INTRODUCER SET, 12:20 [employer] FR 5 [id number] *[id number] Used MICROPUNCTURE, STIFFENED 538-476 *[id number] 538-420 *[id number] 538-421 *[id number] 538-453S *[id number] 12:20 [employer] INDUSTRIES PACK, CCL CUSTOM * Used *[id number] 12:20 [employer] PACER PEN, SKIN DUAL W/ RULER * Used *[id number] 12:20 C2FO WIRE, 3MMJ .035 180CM 180CM Used *[id number] PROBE COVER, STERILE [id number] 12:20 Yedda * Used ULTRASOUND W/ GEL *[id number] 12:20 [employer] MANIFOLD, 4 PORT * Used *[id number] 12:20 [employer] OMNIPAQUE, 350 MG, 150ML 150ML [id number] Used [id number] 12:20 [employer],WARM AIR CCL * Used *[id number] 12:20 [employer] MEDICAL SHEATH, FR4 TERUMO (10CM) FR 4 Used *[id number] History: Current Medications Medication Dosage/Unit Route Frequency Last Date/Time Taken ASA LOPRESSOR PLAVIX LOVENOX Beta Mk History: Allergies Allergy Reaction No Known Allergies History: Risk Factors Family History of Hypertension Dyslipidemia Previous NC Previous Heart Failure Premature CAD Yes Yes Yes Yes No Prior Valve Prior PCI Prior PCIDate Prior CABG Surgery No Yes 01/22/2017 No Cerebrovascular Peripheral Artery Chronic Lung On Dialysis Diabetes Disease Disease Disease No No No No No History: Symptoms/Diagnosis Selection Items Chest pain History: CV Disease Selection Items Known CAD NC History: Stress Tests Stress or Imaging Studies Performed No History: Other Current Smoker Method Quit No Cigarettes 17 Years Ago Labs Hgb (g/dl) Hct (%) WBC (l/cumm) Platelets (thousands) 11.60-17.00 35.00-51.00 4.00-11.00 150.00-450.00 13.4 37.8 4.4 227 Glucose (mg/dl) BUN (mg/dl) Creatinine (mg/dl) BUN:Creatinine (1:x) 74.00-106.00 7.00-18.00 0.50-1.30 10.00-20.00 110 11 0.7 15.7 Na (meq/l) K (meq/l) 136.00-145.00 3.50-5.10 138 3.8 INR (PTT:PT) 0.90-1.10 1 CPK-MB (ng/ML) 0.50-3.60 Not Drawn Medication Medication Total Dose (Bolus/Oral) Medication Total Dosage/Unit 1% XYLOCAINE 20 mL FENTANYL 50 mcg VERSED 2 mg Medications (Bolus/Oral) Medication Time Given Dosage/Unit Administered By Reason 1% XYLOCAINE 07/26/2017 12:50:43 PM 20 mL Celina Watson 20 mL 1% XYLOCAINE given in lab by Celina Watson in Right Groin via Subcutaneous. Ordered by Celina Casas. VERSED 07/26/2017 12:51:27 PM 2 mg Farhan Burns 2 mg VERSED given in lab by Farhan Burns RN in Left Forearm via Peripheral IV. Ordered by Celina Watson. FENTANYL 07/26/2017 12:52:21 PM 50 mcg Farhan Burns 50 mcg FENTANYL given in lab by Farhan Burns RN in Left Forearm via Peripheral IV. Ordered by Celina Casas. Medication (Drip) Medication Time Given Dosage/Unit Concentration/Unit Diluent (ml) Solution IV Solutions 07/26/2017 12:18:09 PM 0 mL (IV) 500 NaCl .9 IV Solutions given in lab by Farhan Burns RN in Left Wrist via Peripheral IV. Pump/Drip Flow = 20 m l/hr using NaCl .9. Initial Case Assessment Cardiovascular HR Rhythm NIBP Chest Pain 60 sr 128/76 0 Circulatory - Right Pulses Dorsalis Pedis Femoral 2 3 Scale (0,1,2,3,4,d) Circulatory - Left Pulses Dorsalis Pedis Femoral 2 3 Scale (0,1,2,3,4,d) Neurological State Oriented to time-place- Alert Moves all extremities person Respiration - General Respiration Rate SpO2 (%) (B/min) 10 98 Final Case Assessment Cardiovascular HR Rhythm NIBP Chest Pain 59 sr 140/88 0 Circulatory - Right Pulses Dorsalis Pedis Femoral 2 3 Scale (0,1,2,3,4,d) Circulatory - Left Pulses Dorsalis Pedis Femoral 2 3 Scale (0,1,2,3,4,d) Neurological State Oriented to time-place- Alert Moves all extremities person Respiration - General Respiration Rate SpO2 (%) (B/min) 9 98 Chronological Log Time Study Chronological Log 12:17:51 Patient arrived via Bed. 12:17:54 Patient Name, D.O.B, / Armband Verified By R.N. 12:17:55 Consent signed by the physician and the patient and verified by the [facility] staff. 12:17:56 Pre-op and post- op instructions given; patient acknowledges understanding of instructions. 12:17:56 Verbal Stimulation=2 Physical Stimulation=2 Airway=2 Respiration=2 TOTAL=8. (0=absent, 1=li mited, 2=present) 12:17:57 Presedation assessment performed by [facility] RN. 12:18:01 Patient has been NPO for More than 6Hrs. 12:18:02 Skin Breakdown- none per patient. 12:18:03 Patient Warmer Placed on the Table. 12:18:05 Stacy Prominences Protected 12:18:06 A # 20 IV was noted in the Forearm (left). Grade = patent 12:18:09 IV Solutions given in lab by Farhan Burns, RN in Left Wrist via Peripheral IV. Pump/Drip F low = 20 ml/hr using NaCl .9. 12:18:16 History and physical on the chart or being dictated. Assessment: Initial Case, HR=60 BPM, Rhythm=sr, OQJQ=955/76 mmhg, Chest Pain=0 Right Pulses: Evan Ped=2, Femoral=3 12:20:48 Left Pulses: Evan Ped=2, Femoral=3 Neurological: State=Alert, Ox3, LANDIS Respiration: Resp=10 B/min, SpO2=98 % Vitals capture started with the following parameters, Patient=Adult, Interval=5 min, Initial Pr rincgr=200 mmHg, 12:22:43 Deflation Rate=5 mmHg, Cuff placed on Left Leg 12:23:14 HR=59 bpm, PDYS=582/76 mmhg, SpO2=98.0 %, Resp=19 B/min 12:28:15 HR=66 bpm, KIOS=706/79 mmhg, SpO2=98.0 %, Resp=10 B/min 12:29:26 Bilateral groins prepped with 2% chlorhexidine, and draped after a 3 minute waiting time. 12:31:35 MD paged 12:33:18 HR=59 bpm, PEVA=378/76 mmhg, SpO2=98.0 %, Resp=8 B/min 12:34:39 MD responded 12:34:56 Pressure channel 1 zeroed. 12:38:17 HR=59 bpm, FXWD=790/78 mmhg, SpO2=97.0 %, Resp=14 B/min 12:39:26 Reference ECG taken 12:43:14 HR=64 bpm, KGBV=661/80 mmhg, SpO2=99.0 %, Resp=15 B/min 12:46:52 MD arrived. 12:48:20 HR=67 bpm, LSWG=592/78 mmhg, SpO2=99.0 %, Resp=14 B/min Time Out. Correct patient, correct procedure, correct physician, power injector not loaded with contrast with surgical 12:49:58 team present. Time Out Concurred by MD and individual staff in procedure. 12:50:31 Case Start 20 mL 1% XYLOCAINE given in lab by Celina Watson in Right Groin via Subcutaneous. Ordered by Shirley, 12:50:43 Xanderayun. 12:51:27 2 mg VERSED given in lab by Farhan Burns RN in Left Forearm via Peripheral IV. Ordered by Celina Watson. 12:51:35 Vitals capture stopped. 12:52:21 50 mcg FENTANYL given in lab by Farhan Burns, RN in Left Forearm via Peripheral IV. Ordere d by Celina Watson. 12:52:53 Access site was Right Femoral Artery. A INTRODUCER SET, MICROPUNCTURE, STIFFENED FR 5 was advanced into the Fem Art (right) using the 12:53:02 Percutaneous technique. A SHEATH, FR4 TERUMO (10CM) FR 4 was exchanged in the Fem Art (right). This was necessary in or suleman to 12:54:11 accomodate a larger catheter. Vitals capture started with the following parameters, Patient=Adult, Interval=5 min, Initial Pr yryunx=735 mmHg, 12:54:34 Deflation Rate=5 mmHg, Cuff placed on Left Leg 12:55:07 HR=59 bpm, CLIY=456/78 mmhg, SpO2=99.0 %, Resp=17 B/min A JL 4.0 INFINITI CATHETER FR 4 was advanced over a wire. OMNIPAQUE, 350 MG, 150ML 150ML was us ed for 12:55:19 injections. Recorded Pressure: Ao, HR=59, Condition=Condition 1 12:56:19 (Aorta) Ao 122/65/89 12:56:31 The LCA was injected and visualized at various angles. OMNIPAQUE, 350 MG, 150ML 150ML used . 12:56:47 Reference ECG taken After removing the current catheter a 3DRC INFINITI CATHETER FR 4 was advanced over a WIRE, 3MM J .035 180CM 12:57:58 180CM. 13:00:06 HR=66 bpm, GAXK=762/84 mmhg, SpO2=94.0 %, Resp=11 B/min 13:00:54 The RCA was injected and visualized at various angles. OMNIPAQUE, 350 MG, 150ML 150ML used . 13:01:35 Catheter was removed A PIGTAIL ANG. INFINITI CATHETER FR 4 was advanced over a wire. OMNIPAQUE, 350 MG, 150ML 150ML was used 13:01:58 for injections. Recorded Pressure: LV, HR=60, Condition=Condition 1 13:03:29 (Left Ventricle) LV 147/9/14 13:03:56 The LV was injected at 8 cc/sec for a total of 32. OMNIPAQUE, 350 MG, 150ML 150ML used. Recorded Pressure: LV, Ao, HR=68, Condition=Condition 1 13:04:52 (Left Ventricle) LV 126/9/13, (Aorta) Ao 136/32/88 13:05:07 HR=66 bpm, PBEG=869/78 mmhg, SpO2=95.0 %, Resp=11 B/min 13:05:11 Catheter was removed 13:08:37 Case End 13:09:57 Sheath(s) left in place, will be removed in Holding Area 13:10:00 Sterile dressing applied to site 13:10:01 No case complications noted. 13:10:02 Cine recording checked. 13:10:03 Bedside Report will be given. 13:10:06 HR=62 bpm, LSEG=109/88 mmhg, SpO2=98.0 %, Resp=9 B/min Assessment: Final Case, HR=59 BPM, Rhythm=sr, DGSI=977/88 mmhg, Chest Pain=0 Right Pulses: Evan Ped=2, Femoral=3 13:10:07 Left Pulses: Evan Ped=2, Femoral=3 Neurological: State=Alert, Ox3, LANDIS Respiration: Resp=9 B/min, SpO2=98 % 13:15:13 Vitals capture stopped. 13:15:31 Patient moved to bed 13:16:14 Patient transported to DOCU. End Study - Contrast Media Used In Study Contrast Total Opened (mL) Total Used (mL) Total Wasted (mL) Omnipaque 75 75 0 End Study - Maximum Contrast Load Max Contrast Load (mL) 561.7 End Study - Radiation Exposure Fluoro Time (minutes) 2.2 End Study - Patient Disposition Complications Transferred To Interventional Outcome No Telemetry Bed No attempt made
[2017-07-26] MEDS ORDERED: PAPAVERINE INJ 60 MG, NITROGLYCERIN INJ 100 MCG, DILTIAZEM INJ 100 MG in SODIUM CHLORID... IRRIGATION SCH (14:45)
--- NOTE | 2017-07-26 15:42 | RADRPT ---
EXAM DATE/TIME: 07/26/2017 14:39 [facility] COMPARISON: CHEST SINGLE AP, January 21, 2017, 16:14. INDICATIONS : Evaluate for pneumonia, pneumothorax or communicable disease. Pre op cabg. MEDICAL HISTORY : None. SURGICAL HISTORY : cardiac catheterization today. ENCOUNTER: Initial ACUITY: 1 day PAIN SCORE: 0/10 LOCATION: Bilateral chest FINDINGS: A single view of the chest demonstrates the lungs to be symmetrically aerated without evidence of mas s, infiltrate or effusion. The cardiomediastinal contours are unremarkable. Osseous structures are intact. CONCLUSION: No acute disease. Aneudy Garcia MD on July 26, 2017 at 15:40 Board Certified Radiologist. This report was verified electronically.
--- NOTE | 2017-07-26 15:44 | MA ---
cc: Celina Watson MD, Sohit K MD Bernardo,Jason PUGA 07/26/2017 INDICATION FOR CATHETERIZATION: Unstable angina. CONSENT: Full informed consent was obtained prior to procedure. Risks of , bleeding, myocardial infarction, perforation, aspiration, or other unforeseen complications reviewed. The patient appeared to fully understand the risks. BRIEF HISTORY: This is a 61-year-old gentleman who initially presented in the year 1999 with an acute inferior infarct. He underwent stenting at that time in 2 spots, the mid and the distal RCA. In 2009, he underwent another stenting procedure and in 01/2017, he had angioplasty because of his prior history of multiple stents. It was very difficult to try and get a balloon down, so it was decided that should this recur, we would proceed with bypass surgery. Patient now presents with unstable angina. SEDATION: With Versed and fentanyl given. PROCEDURE SUMMARY: Patient was draped and prepped in usual manner. Right femoral artery was entered using a micropuncture technique. Via the 4 [place] sheath, left and right catheters were used to intubate the left and right coronaries. Pigtail catheter to left ventricle and left ventriculography was carried out. At the end of the procedure, all catheters were removed. The sheath was left in place to be pulled in the holding area. FINDINGS: 1. Hemodynamics: The aortic pressure was 136/32 with a mean of 88. The left ventricular pressure was 126 with the left ventricular end diastolic pressure of 13. There was no evidence of significant gradient on pullback across the LV outflow tract and aortic valve. 2. Left ventriculogram. The overall left ventricular ejection fraction is 60%. There is no evidence of significant mitral regurgitation or mural thrombus. 3. Coronaries. The left main is free of significant disease. The left anterior descending artery was a large vessel. There is evidence of approximately 30% disease in the mid LAD just after a large diagonal branch. There was a large circumflex artery with a large first obtuse marginal branch, medium second obtuse marginal branch. Again, very mild diffuse disease is seen in the second obtuse marginal branch of about 25%. The right coronary artery was diffusely diseased from the mid point of the proximal third all the way to the distal right coronary. Multiple lesions were noted, a 95 eccentric in the mid third, a 75-90 in the mid to distal third and a long 60% in the distal third. There was evidence of restenosed stents in the mid right coronary and significant disease in the distal right coronary. There as also evidence of a previously placed stent in the posterior descending artery area of the distal right going into the posterolateral branch. CONCLUSION: Normal left ventricular function. Very severe disease of the right coronary. Very difficult to angioplasty on the last time in January. PLAN: To proceed with bypass surgery to the distal right. Some disease also noted in the left anterior descending, which will be managed medically. MD BELTRAN Abdalla/DAYRON , 01:26 PM , 01:54 PM
--- NOTE | 2017-07-26 17:43 | PD.CAR.PN ---
CVT Progress Note Subjective/Hospital Course: pt seen and evaluated, full consult dictated sts data discussed with pt RISK SCORES About the STS Risk Calculator Procedure: CAB Only Risk of Mortality: 0.346% Morbidity or Mortality: 4.472% Long Length of Stay: 1.402% Short Length of Stay: 77.868% Permanent Stroke: 0.302% Prolonged Ventilation: 2.751% DSW Infection: 0.164% Renal Failure: 0.481% Reoperation: 2.574% Objective: Vital Signs Date Time Temp Pulse Resp B/P (MAP) Pulse Ox O2 Delivery O2 Flow Rate FiO2 07/26/17 13:19 96 Room Air 07/26/17 11:09 54 18 122/77 (92) 99 Labs: Laboratory Tests Test 07/26/17 11:00 White Blood Count 4.4 TH/MM3 (4.0-11.0) Red Blood Count 4.08 MIL/MM3 (4.50-5.90) Hemoglobin 13.4 GM/DL (13.0-17.0) Hematocrit 37.8 % (39.0-51.0) Mean Corpuscular Volume 92.6 FL (80.0-100.0) Mean Corpuscular Hemoglobin 32.8 PG (27.0-34.0) Mean Corpuscular Hemoglobin Concent 35.4 % (32.0-36.0) Red Cell Distribution Width 13.2 % (11.6-17.2) Platelet Count 227 TH/MM3 (150-450) Mean Platelet Volume 7.4 FL (7.0-11.0) Neutrophils (%) (Auto) 46.7 % (16.0-70.0) Lymphocytes (%) (Auto) 40.5 % (9.0-44.0) Monocytes (%) (Auto) 11.9 % (0.0-8.0) Eosinophils (%) (Auto) 0.5 % (0.0-4.0) Basophils (%) (Auto) 0.4 % (0.0-2.0) Neutrophils # (Auto) 2.1 TH/MM3 (1.8-7.7) Lymphocytes # (Auto) 1.8 TH/MM3 (1.0-4.8) Monocytes # (Auto) 0.5 TH/MM3 (0-0.9) Eosinophils # (Auto) 0.0 TH/MM3 (0-0.4) Basophils # (Auto) 0.0 TH/MM3 (0-0.2) CBC Comment DIFF FINAL Differential Comment Prothrombin Time 10.2 SEC (9.8-11.6) Prothromb Time International Ratio 1.0 RATIO Activated Partial Thromboplast Time 23.1 SEC (24.3-30.1) Blood Urea Nitrogen 11 MG/DL (7-18) Creatinine 0.78 MG/DL (0.60-1.30) Random Glucose 110 MG/DL (74-106) Calcium Level 9.4 MG/DL (8.5-10.1) Sodium Level 138 MEQ/L (136-145) Potassium Level 3.8 MEQ/L (3.5-5.1) Chloride Level 104 MEQ/L (98-107) Carbon Dioxide Level 24.9 MEQ/L (21.0-32.0) Anion Gap 9 MEQ/L (5-15) Estimat Glomerular Filtration Rate 101 ML/MIN (>89) Result Diagram: 07/26/17 1100 07/26/17 1100 Angelika Man Jul 26, 2017 17:43
[2017-07-26 18:33] LABS: BILIRUBIN, URINE NEG (NEG); BLOOD, URINE NEG (NEG); GLUCOSE,URINE NEG (NEG); KETONE, URINE NEG (NEG); NITRITE,URINE NEG (NEG); PH, URINE 7.5 (5.0-8.5); URINE COLOR YELLOW (YELLW/STRAW); URINE LEUKOCYTE ESTERASE NEG (NEG)
--- NOTE | 2017-07-26 18:38 | RADRPT ---
EXAM DATE/TIME: 07/26/2017 17:48 [facility] COMPARISON: No previous studies available for comparison. INDICATIONS : Preop cardiac surgery. MEDICAL HISTORY : Myocardial infarction. Hypercholesterolemia. Sleep apnea. SURGICAL HISTORY : Appendectomy. Coronary artery stent. ENCOUNTER: Initial ACUITY: 1 day PAIN SCORE: 0/10 LOCATION: Bilateral neck PEAK SYSTOLIC VELOCITIES (cm/sec): ICA/CCA RATIO: Right: 1.1 Left: 0.7 ICA: Right: 73.6 Left: 66.9 CCA: Right: 67.2 Left: 96.7 ECA: Right: 78.9 Left: 87.9 VERTEBRAL: Right: 39.5 antegrade Left: 48.2 antegrade Elevated flow velocities and ICA/CCA ratios have been found to correlate with increased degrees of vessel stenosis, calculated as percentage of diameter relative to a normal segment of distal ICA/CCA FINDINGS: RIGHT CAROTID: Trace plaque of the bulb and proximal internal carotid artery. The waveforms are within normal limit s. LEFT CAROTID: Trace plaque in the bulb and proximal internal carotid artery. The waveforms are normal. VERTEBRAL ARTERIES: Antegrade flow is seen in both vertebral arteries. MISCELLANEOUS: None. CONCLUSION: Minimal atherosclerotic plaque of both carotid bifurcations. Otherwise normal. There is no significan t narrowing. Sid Mandel MD on July 26, 2017 at 18:36 Board Certified Radiologist. This report was verified electronically.
--- NOTE | 2017-07-26 18:40 | RADRPT ---
EXAM DATE/TIME: 07/26/2017 18:00 [facility] COMPARISON: No previous studies available for comparison. INDICATIONS : Preop cardiac surgery. MEDICAL HISTORY : Hypercholesterolemia. Myocardial infarction. Sleep apnea. SURGICAL HISTORY : Appendectomy.Coronary artery stent. ENCOUNTER: Initial ACUITY: 1 day PAIN SCORE: 0/10 LOCATION: Bilateral legs. TECHNIQUE: Venous ultrasound of the left and right leg was performed from the inguinal ligament to the proximal calf. Real-time, color Doppler and spectral tracing, compression and augmentation techniques were us ed. FINDINGS: RIGHT LEG: There is normal compressibility of the deep venous system from the inguinal region to the proximal ca lf. No echogenic clot is seen in the lumen of the common femoral, femoral, popliteal, and posterior tibial veins. There is a normal response of the venous system to proximal and distal augmentation an d respiration. LEFT LEG: There is normal compressibility of the deep venous system from the inguinal region to the proximal ca lf. No echogenic clot is seen in the lumen of the common femoral, femoral, popliteal, and posterior tibial veins. There is a normal response of the venous system to proximal and distal augmentation an d respiration. CONCLUSION: Negative study. No venous thrombosis of either lower extremity. Sid Mandel MD on July 26, 2017 at 18:38 Board Certified Radiologist. This report was verified electronically.
--- NOTE | 2017-07-26 18:42 | RADRPT ---
EXAM DATE/TIME: 07/26/2017 18:07 [facility] COMPARISON: US LEG BILATERAL VENOUS DOPPLER, July 26, 2017, 18:00. INDICATIONS : Preop cardiac surgery. MEDICAL HISTORY : Myocardial infarction. Hypercholesterolemia. Sleep apnea. SURGICAL HISTORY : Appendectomy. Coronary artery stent. ENCOUNTER: Initial ACUITY: 1 day PAIN SCORE: 0/10 LOCATION: Bilateral legs. GREATER SAPHENOUS VEIN THIGH: PROXIMAL: Right 7 mm Left 9 mm MID: Right 3 mm Left 4 mm DISTAL: Right 2 mm Left 2 mm CALF: PROXIMAL: Right 2 mm Left 2 mm MID: Right 1 mm Left 2 mm DISTAL: Right 1 mm Left 2 mm FINDINGS: The venous system of the lower extremities are patent by color Doppler imaging. Measurements of the leg veins (in mm) are listed above. CONCLUSION: Bilateral greater saphenous vein measurements as above. Sid Mandel MD on July 26, 2017 at 18:39 Board Certified Radiologist. This report was verified electronically.
--- NOTE | 2017-07-27 08:39 | MB ---
cc: Marcia Castle MD DATE OF CONSULT: 07/26/2017 HISTORY OF PRESENT ILLNESS: This is a 61-year-old male patient of Dr. Jason Pérez, Dr. Watson. History of coronary artery disease, complaining of chest pain with exertion, that is chest tightness radiating to his back and his arm. If he stops the activity, this pain stops. Denies any diaphoresis, has been very active, but due to this chest discomfort, he has slowed down from any kind of exercise activity. He was seen back in January 2017 for chest pain. He underwent urgent catheter, showing severe single vessel disease of the right coronary artery. Successful angioplasty was carried out of the 90% in stent restenosis of the mid right coronary. At that time, if any recurrent stenosis, the recommendations were for bypass. He has had history of [place] in the past. He had stent placement to the RCA in 1999, mid RCA in 2009, PCI in January 2017. Due to this recurrent chest pain, the patient underwent recurrent cardiac catheterization, which showed no left main disease. The RCA had a 95% and 75% stenosis, with an EF of 60%. We were consulted to evaluate for coronary artery bypass graft x 1 to the RCA. PAST MEDICAL HISTORY: Includes coronary artery disease with prior [place], angina, hyperlipidemia, history of hepatitis A. PAST SURGICAL HISTORY: Include the above multiple PCI and stenting, appendectomy, tonsillectomy. ALLERGIES: INCLUDE HAZELNUTS. HOME MEDICATIONS: Include Plavix 75 daily, aspirin 81, Lipitor 20, nitroglycerine as needed, lisinopril 10, Lopressor 50, 1/2 tablet by mouth twice a day, Tricor 145, 1/2 tablet every other day. FAMILY HISTORY: Father had history of [place], CHF, atherosclerotic heart disease. SOCIAL HISTORY: The patient did smoke a corn type pipe, quit many years ago. Occasional alcohol. REVIEW OF SYSTEMS: GENERAL: No night sweats, fever, heat and cold intolerance. SKIN: No psoriasis, itching or hives. HEENT: No blurred vision, hearing loss. RESPIRATORY: Some mild shortness of breath. CARDIOVASCULAR: As above in the HPI. GASTROINTESTINAL: No diarrhea or vomiting. GENITOURINARY: No burning, frequency, urgency. ELECTRON TUBE ASSEMBLER: No history of TIA, CVA, seizure disorder. ENDOCRINE: No diabetes and/or hypothyroidism. PHYSICAL EXAMINATION: VITAL SIGNS: Blood pressure 120/70, heart rate of 54, room air saturation 96%. GENERAL: The patient is awake, alert, in no acute distress. HEENT: Head is normocephalic, atraumatic. Pupils equal and reactive. Oral mucosa pink, moist. NECK: Supple. No JVD. CARDIOVASCULAR: Heart sounds S1, S2, regular rate and rhythm. No audible rubs, murmurs, gallops. PULMONARY: Lungs clear to auscultation. No wheezes, rales or rhonchi. ABDOMEN: Soft, nontender. No masses or organomegaly. EXTREMITIES: No cyanosis, clubbing or edema. LABORATORY DATA: Lab work shows hemoglobin 13, hematocrit 37, white cell count of 4.4, platelet count 227. Sodium 138, potassium 3.8, BUN 11, creatinine 0.78. INR is 1.0. IMAGING: Chest x-ray, no acute disease. ECHOCARDIOGRAM: Sinus rhythm, with nonspecific inferior lead changes. He did have an echocardiogram just recently that showed an EF of 52%, some LVH, some left atrial enlargement. Trace mitral regurgitation. Mild tricuspid regurgitation. Some inferior wall hypokinesis. He did have a carotid ultrasound in 2015, which had some right internal carotid less than 30%. IMPRESSION AND PLAN: This is a very pleasant 61-year-old male, history of coronary artery disease, multiple stenting and percutaneous coronary intervention to the right coronary artery, with recurrent stenosis of 75% and 95% ejection fraction that is good. At this time, the patient will be worked up for coronary artery bypass graft x 1, evaluating the use of the right internal mammary artery, also if not, then an endoscopic harvesting from the vein. Further planning per Dr. Beaver. Procedures, alternatives and risks have been discussed with the patient. STS data will be documented in the electronic record. At this time, plan is for surgery on August 02. Dictated by CARLOS EDUARDO Gillette MD SOL Wall/RIGO , 05:39 PM , 06:46 PM
[2017-07-27 15:38] LABS: HEMOGLOBIN A1C 6.1 % (4.3-6.0)
--- NOTE | 2017-07-27 20:32 | EKG ---
Date Performed: 07/26/2017 Time Performed: 11:19:10 PTAGE: 61 years EKG: Sinus bradycardia with 1st degree A-V block. ST-T changes are nonspecific Low QRS voltages in limb leads Abnormal ECG PREVIOUS TRACING : 01/23/2017 05.59 Since the previous tracing, no significant change noted DOCTOR: Raulito Briceno Interpretating Date/Time 07/27/2017 20:31:06
--- NOTE | 2017-07-29 09:21 | RSPPFT ---
DATE OF PROCEDURE: 07/26/17 COMMENTS: VOLUMES DYNAMIC: FVC and FEV1 normal. FLOWS: FEV1% and FEF 25-75 normal. IMPRESSION: Normal simple spirometry.
== END 2017-07-26 18:46 | disposition home or self-care (01) ==
LOC: HDIC 10:32 → HDOC 10:32
PROVIDERS: ATTEND Internal Medicine Cardiovascular Disease
DX: I20.0 Unstable angina (principal); R00.1 Bradycardia, unspecified; Z79.01 Long term (current) use of anticoagulants; Z79.899 Other long term (current) drug therapy; I25.2 Old myocardial infarction; E78.00 Pure hypercholesterolemia, unspecified; G47.30 Sleep apnea, unspecified; I65.23 Occlusion and stenosis of bilateral carotid arteries; R07.9 Chest pain, unspecified
CPT/HCPCS: 71045; 80048; 81001; 83036; 85025; 85610; 85730; 86850; 86900; 86901; 87641; 93005; 93458; 93880; 93970; 93998; 94010; 99152; C1769; C1893; J1644; J2250; J3010; Q9967

== ENCOUNTER 2017-08-04 05:26 | Inpatient (IN) | payer BC ==
[~2017-08-04] VITALS: Ht 182.9 cm; Wt 80.4 kg
[2017-08-04] VITALS (9 sets, daily range): BP systolic 104–129; BP diastolic 57–78; PULSE 70–79; RESP 10–18; TEMP 97.4–98.6; O2SAT 97–99
[~2017-08-04 05:26] MED LIST changes: +NITR1SUB3 SL
[2017-08-04] MEDS ORDERED: CHLORHEXIDINE GLUCONATE 2 % 1 PACK (2 CLOTHS) TOPICAL PRN (05:45)
[2017-08-04] MEDS ORDERED: INSULIN REGULAR 100 UNITS in NS 100 ML IV PRN (05:45)
[2017-08-04] MEDS ORDERED: SODIUM CHLORID 0.9% 500 ML IV PRN (05:45)
[2017-08-04] MEDS ORDERED: LACTATED RINGER'S 1000 ML IV PRN (05:45)
[2017-08-04] MEDS ORDERED: POVIDONE IODINE 5% (ANTISEPSIS KIT) 4 APPLICATIONS EACH NARE PRN (05:45)
[2017-08-04] MEDS ORDERED: SODIUM CHLORIDE 0.9% FLUSH 10 ML FLUSH IV FLUSH PRN ×3 (05:45→11:00)
[2017-08-04] MEDS ORDERED: METOPROLOL TARTRATE 25 MG TAB PO PRN (05:45)
[2017-08-04] MEDS ORDERED: DEXTROSE 50% IN WATER 50 ML VIAL(D50) IV PUSH PRN ×2 (05:45→12:00)
[2017-08-04] MEDS ORDERED: PAPAVERINE 60 MG-NITROGLYCERIN 100 MCG-DILTIAZEM 100 MG in NS 100 ML IRRIGATION SCH ×4 (06:00)
[2017-08-04] MEDS ORDERED: METOPROLOL TARTRATE 25 MG TAB PO SCH (06:00)
[2017-08-04] MEDS ORDERED: CHLORHEXIDINE GLUCONATE 4% SOLN 120 ML BTL TOPICAL SCH (06:00)
[2017-08-04] MEDS ORDERED: CEFAZOLIN 500 MG in NS IRR BTL 500 ML IRRIGATION SCH (06:00)
[2017-08-04] MEDS ORDERED: ceFAZolin 2 GM PREMIX 50 ML IV SCH (06:00)
[2017-08-04] MEDS ORDERED: ceFAZolin 2 GM PREMIX 50 ML ONE (06:10)
[2017-08-04] MEDS ORDERED: HEPARIN SODIUM - SQ 10,000 UNITS/ML VIAL ONE ×2 (06:10)
[2017-08-04] MEDS ORDERED: VANCOMYCIN HCL 1000 MG VIAL ONE (06:10)
[2017-08-04] MEDS ORDERED: POTASSIUM CHLOR 20 MEQ PREMIX 100 ML ONE (10:35)
[2017-08-04] MEDS ORDERED: METOPROLOL TARTRATE 5 MG/5 ML VIAL IV PUSH PRN (11:30)
[2017-08-04] MEDS ORDERED: ACETAMINOPHEN 325 MG TAB PO PRN (11:30)
[2017-08-04] MEDS ORDERED: ALBUMIN 5% INJ 250 ML IV PRN (11:30)
[2017-08-04] MEDS ORDERED: Post-op Orders (for Pharmacy) OTHER ONE (11:30)
[2017-08-04] MEDS ORDERED: hydrALAZINE HCL 20 MG/ML VIAL IV PUSH PRN (11:30)
[2017-08-04] MEDS ORDERED: ONDANSETRON HCL 4 MG/2 ML VIAL IV PUSH PRN (11:30)
[2017-08-04] MEDS ORDERED: LACTATED RINGER'S 1000 ML INJ 500 ML IV PRN (11:30)
[2017-08-04] MEDS ORDERED: MORPHINE SULFATE 2 MG/ML INJ IV PUSH PRN (11:30)
[2017-08-04] MEDS ORDERED: ACETAMINOPHEN 650 MG SUPP RECTAL PRN (11:30)
--- NOTE | 2017-08-04 11:59 | PD.OP ---
cc: Celina Watson MD; Marcia Castle MD Operative Report Date of Surgery: Aug 04, 2017 Preoperative Diagnosis: Postoperative Diagnosis: Procedure: 1. Off-pump Coronary Artery Bypass Grafting x 1 with reverse saphenous vein graft to the Posterior Descending branch of the Right Coronary Artery (RPDA) 2. Left Leg Endoscopic Vein [place] 3. Intraoperative Vein Mapping Surgeon: Marcia Castle Hammer Repairer(s): Laurie Hurley Operation and Findings: PREPROCEDURE DIAGNOSES 1. Recurrent Single-Vessel Coronary Artery Disease. 2. Stable Angina POSTPROCEDURE DIAGNOSES Same SURGICAL PROCEDURE 1. Off-pump Coronary Artery Bypass Grafting x 1 with reverse saphenous vein graft to the Posterior Descending branch of the Right Coronary Artery (RPDA) 2. Left Leg Endoscopic Vein [place] 3. Intraoperative Vein Mapping SURGEON Marcia Castle MD HYBRID CAR MECHANIC [facility]ARC [facility] ANESTHESIA General endotracheal STATISTICAL DEVELOPER RUTH Blankenship MD PREPARATION ChloraPrep. COUNTS Needle, sponge, and instrument counts were correct. DRAINS Two 32-Bruneian mediastinal tubes. COMPLICATIONS None. INDICATIONS FOR PROCEDURE The patient is a 61-year-old presenting with chest pain and single-vessel coronary artery disease, s/p multiple previous PCI and stents to the RCA. He is being brought to the operating room for surgical revascularization therapy. PROCEDURE Patient was brought to the operating room and placed supine on the OR table. Following the induction of adequate general endotracheal anesthesia and placement of appropriate monitoring devices, intraoperative vein mapping was performed which revealed suitable-caliber conduit in the both legs. The patient was then prepped and draped in standard sterile fashion. A median sternotomy was performed and the pericardium opened. The RCA territory was explored and it was noted that the entire RCA upto the PDA was heavily calcified in between the stents. Just beyond the distal stent there was a soft spot which was chosen as the site for bypassing. I did not think that the FLAVIO would reach this distally , and therefore, plans were made to harvest a segment of saphenous vein from the left leg. 2500 units of intravenous heparin was given. Left leg greater saphenous veins were harvested endoscopically. This appeared to be a good- caliber conduit. The patient was systemically heparinized and anticoagulation monitored by serial ACT measurements. At this point, all anastomoses were performed in a beating-heart fashion using the BioAxone Therapeutic stabilizing system. The reversed vein graft was anastomosed to the RPDA (2 mm) in an end-to-side fashion using a running 7-0 Prolene. The proximal anastomosis was then constructed to the ascending aorta in a running manner using 6-0 Prolene. All anastomotic sites were inspected and appeared to be hemostatic and patent. Protamine solution was given. Strict hemostasis was assured. The closure was undertaken. 2 chest tubes were placed. The pericardium was reapproximated in the midline. The sternum was approximated using sternal wires. The muscular and fascial layer were then closed in 3 layers. The endoscopic vein harvest sites were closed in 2 layers. The patient tolerated the procedure well and was transferred to CVICU in stable condition. Marcia Castle MD Aug 04, 2017 11:59
[2017-08-04] MEDS ORDERED: DOPamine 800 MG/500 ML INJ 500 ML IV PRN (12:00)
[2017-08-04] MEDS ORDERED: CALCIUM CHLORIDE 10% 1 GRAM/10 ML VIAL IV PUSH PRN (12:00)
[2017-08-04] MEDS ORDERED: DEXMEDETOMIDINE HCL 200 MCG/2 ML VIAL IV ONE (12:00)
[2017-08-04] MEDS ORDERED: METOPROLOL TARTRATE 5 MG/5 ML VIAL IV ONE (12:00)
[2017-08-04] MEDS ORDERED: RESP: RACEPINEPHRINE 2.25% 0.5 ML NEB NEB PRN (12:00)
[2017-08-04] MEDS ORDERED: ePHEDrine/NS 25 MG/5 ML SYRINGE IV ONE (12:00)
[2017-08-04] MEDS ORDERED: MAGNESIUM SULFATE INJ 2 GM in SODIUM CHLORIDE 0.9% INJ 100 ML IV PRN ×4 (12:00)
[2017-08-04] MEDS ORDERED: HEPARIN SODIUM - SQ 10,000 UNITS/ML VIAL OTHER ONE (12:00)
[2017-08-04] MEDS ORDERED: INSULIN REGULAR (IV INFUSION) 100 UNITS in SODIUM CHLORIDE 0.9% INJ 99 ML IV PRN (12:00)
[2017-08-04] MEDS ORDERED: NS 100 ML (PAB BAG) 100 ML IV ONE (12:00)
[2017-08-04] MEDS ORDERED: POTASSIUM CHLOR 20 MEQ PREMIX 100 ML IV PRN ×3 (12:00)
[2017-08-04] MEDS ORDERED: SODIUM CHLOR 0.9% 1000 ML INJ 1,000 ML IV ONE (12:00)
[2017-08-04] MEDS ORDERED: SODIUM BICARBONATE 8.4% SOLN 50 MEQ/50 ML VIAL IV PUSH PRN ×2 (12:00)
[2017-08-04] MEDS ORDERED: DOBUTamine PREMIX DRIP 250 ML IV PRN (12:00)
[2017-08-04] MEDS ORDERED: EPINEPHrine HCL (1:1000) 1 MG/ML VIAL IV ONE (12:00)
[2017-08-04] MEDS ORDERED: MIDAZOLAM HCL 2 MG/2 ML VIAL IV ONE (12:00)
[2017-08-04] MEDS ORDERED: CALCIUM CHLORIDE INJ 1 GM in SODIUM CHLORIDE 0.9% INJ 100 ML IV PRN (12:00)
[2017-08-04] MEDS ORDERED: fentaNYL CITRATE 250 MCG/5 ML AMP IV ONE (12:00)
[2017-08-04] MEDS ORDERED: NITROGLYCERIN-D5W 50 MG/250 ML 250 ML IV PRN (12:00)
[2017-08-04] MEDS ORDERED: MAGNESIUM SULFATE 1 GM/2 ML VIAL IV ONE (12:00)
[2017-08-04] MEDS ORDERED: LIDOCAINE HCL 1% PF 5 ML SYRINGE OTHER ONE (12:00)
[2017-08-04] MEDS ORDERED: PROTAMINE SULFATE 250 MG/25 ML VIAL IV ONE (12:00)
[2017-08-04] MEDS ORDERED: VECURONIUM BROMIDE 10 MG VIAL IV ONE (12:00)
[2017-08-04] MEDS ORDERED: PHENYLEPHRINE INJ 40 MG in DEXTROSE 5% IN WATE 500 ML INJ 496 ML IV PRN ×2 (12:00)
[2017-08-04] MEDS ORDERED: PHENYLEPH/NS 1000 MCG/10 ML SYR IV ONE (12:00)
[2017-08-04] MEDS ORDERED: LACTATED RINGER'S 1000 ML INJ 1,000 ML IV ONE (12:00)
[2017-08-04] MEDS ORDERED: MEPERIDINE HCL 25 MG/ML VIAL IV PUSH PRN (12:00)
[2017-08-04] MEDS ORDERED: RESP: ALBUTEROL 2.5 MG/IPRATROPIUM 0.5 MG NEB (PRN) NEB (12:00)
[2017-08-04] MEDS ORDERED: POTASSIUM CHLORIDE 20 MEQ CONTROLLED RELEASE TAB PO PRN ×2 (12:00)
[2017-08-04] MEDS ORDERED: DEXMEDETOMIDINE INJ 200 MCG in SODIUM CHLORIDE 0.9% INJ 50 ML IV PRN (12:00)
[2017-08-04] MEDS ORDERED: CLEVIDIPINE INJ 50 ML IV PRN (12:00)
[2017-08-04] MEDS ORDERED: NITROGLYCERIN 50 MG/DEXTROSE 5% SOLN 250 ML BTL IV ONE (12:00)
[2017-08-04] MEDS ORDERED: CALCIUM CHLORIDE 10% SOLN 1 GRAM/10 ML SYR IV ONE (12:00)
[2017-08-04] MEDS ORDERED: MIDAZOLAM HCL 2 MG/2 ML VIAL ONE (12:02)
[2017-08-04] MEDS ORDERED: fentaNYL CITRATE 250 MCG/5 ML AMP ONE (12:03)
--- NOTE | 2017-08-04 12:13 | RADRPT ---
EXAM DATE/TIME: 08/04/2017 11:58 [facility] COMPARISON: CHEST SINGLE AP, July 26, 2017, 14:39. INDICATIONS : Post CABG. MEDICAL HISTORY : Myocardial infarction. Hypercholesterolemia. Sleep apnea. SURGICAL HISTORY : Appendectomy. Coronary artery stent. ENCOUNTER: Initial ACUITY: 1 day PAIN SCORE: Non-responsive. LOCATION: Bilateral chest FINDINGS: Support apparatus in good position without pneumothorax. Sternal wires from bypass noted. The stoma ch is appropriate. CONCLUSION: Post CABG chest as above. Umair Farris MD FACR on August 04, 2017 at 12:09 Board Certified Radiologist. This report was verified electronically.
[2017-08-04] MEDS: ACETAMINOPHEN 1000 MG/100 ML 100 ML IV SCH ×3 (12:33→23:58)
[2017-08-04] MEDS: RESP: ALBUTEROL 2.5 MG/IPRATROPIUM 0.5 MG NEB (SCH) NEB (15:27)
[2017-08-04] MEDS: KETOROLAC TROMETHAMINE 30 MG/ML (IVP) VIAL IV PUSH PRN (16:09)
[2017-08-04] MEDS: ceFAZolin 2 GM PREMIX 50 ML IV SCH ×2 (16:09→23:59)
[2017-08-04] MEDS: SODIUM CHLORIDE 0.9% FLUSH 10 ML FLUSH IV FLUSH SCH (20:16)
[2017-08-04] MEDS: ATORVASTATIN 80 MG TAB PO SCH (20:16)
[2017-08-05] VITALS (20 sets, daily range): BP systolic 121–139; BP diastolic 56–83; PULSE 73–96; RESP 16–20; TEMP 98–98.9; O2SAT 96–98
[2017-08-05] MEDS: KETOROLAC TROMETHAMINE 30 MG/ML (IVP) VIAL IV PUSH PRN ×2 (02:14→09:56)
[2017-08-05] MEDS: RESP: ALBUTEROL 2.5 MG/IPRATROPIUM 0.5 MG NEB (SCH) NEB ×5 (02:48→20:00)
[2017-08-05 05:03] LABS: HEMATOCRIT 30.8 % (39.0-51.0); HEMOGLOBIN 10.9 GM/DL (13.0-17.0); MEAN CELL VOLUME 93.3 FL (80.0-100.0); MEAN CORPUSCULAR HEMOGLOBIN 33.1 PG (27.0-34.0); MEAN CORPUSCULAR HGB CONC 35.5 % (32.0-36.0); MEAN PLATELET VOLUME 7.4 FL (7.0-11.0); PLATELET COUNT 253 TH/MM3 (150-450); RED CELL DISTRIBUTION WIDTH 13.5 % (11.6-17.2); WHITE BLOOD COUNT 10.3 TH/MM3 (4.0-11.0)
[2017-08-05 05:28] LABS: BICARBONATE 23.8 MEQ/L (21.0-32.0); CALCIUM 8.4 MG/DL (8.5-10.1); CREATININE 0.79 MG/DL (0.60-1.30); MAGNESIUM 2.2 MG/DL (1.5-2.5)
[2017-08-05] MEDS: ACETAMINOPHEN 1000 MG/100 ML 100 ML IV SCH (06:00)
[2017-08-05] MEDS: PANTOPRAZOLE SOD 40 MG DELAYED RELEASE TAB PO SCH (06:17)
--- NOTE | 2017-08-05 06:22 | RADRPT ---
EXAM DATE/TIME: 08/05/2017 04:42 [facility] COMPARISON: CHEST SINGLE AP, August 04, 2017, 11:58. INDICATIONS : Shortness of breath, possible pulmonary disease. MEDICAL HISTORY : Myocardial infarction. Hypercholesterolemia. Sleep apnea SURGICAL HISTORY : CABG. Appendectomy. Coronary artery stent. ENCOUNTER: Subsequent ACUITY: 2 days PAIN SCORE: Non-responsive. LOCATION: Bilateral chest FINDINGS: Interval extubation and removal of gastric tube. Right internal jugular catheter tip at the cavoatri al junction. A stent remains in place. Patchy infiltrates at the left base. The right lung is lenard r. CONCLUSION: Mild patchy infiltrates left lung base. Bobby Kaur MD on August 05, 2017 at 6:19 Board Certified Radiologist. This report was verified electronically.
--- NOTE | 2017-08-05 07:45 | EKG ---
Date Performed: 08/05/2017 Time Performed: 04:29:40 PTAGE: 61 years EKG: Marked baseline artifact I would repeat the EKG given the significant artifact. Abnormal EC G PREVIOUS TRACING : 07/26/2017 11.19 DOCTOR: Kumar Feng Interpretating Date/Time 08/05/2017 07:43:48
[2017-08-05] MEDS: ASPIRIN 81 MG CHEW TAB PO SCH (09:06)
[2017-08-05] MEDS: ACETAMINOPHEN/HYDROcodone 325 MG/5 MG TAB PO PRN ×4 (09:06→21:16)
[2017-08-05] MEDS: CLOPIDOGREL 75 MG TAB PO SCH (09:06)
[2017-08-05] MEDS: ceFAZolin 2 GM PREMIX 50 ML IV SCH ×2 (09:07→15:08)
[2017-08-05] MEDS: SODIUM CHLORIDE 0.9% FLUSH 10 ML FLUSH IV FLUSH SCH ×2 (09:09→21:13)
[2017-08-05] MEDS ORDERED: SOD PHOSPHATE/SOD BIPHOSPHATE (ADULT) ENEMA 133ML RECTAL PRN (09:15)
[2017-08-05] MEDS ORDERED: GLUCAGON 1 MG/ML VIAL OTHER PRN (09:15)
[2017-08-05] MEDS ORDERED: DEXTROSE 50% IN WATER 50 ML VIAL(D50) IV PUSH PRN (09:15)
[2017-08-05] MEDS ORDERED: BISACODYL 10 MG SUPP RECTAL PRN (09:15)
[2017-08-05] MEDS ORDERED: PILL SPLITTER OTHER PRN (09:45)
[2017-08-05] MEDS: METOPROLOL TARTRATE 25 MG TAB PO SCH ×2 (09:55→21:13)
[2017-08-05] MEDS: DOCUSATE SODIUM 100 MG CAP PO SCH ×2 (09:55→21:13)
[2017-08-05] MEDS: INSULIN ASPART SUPPLEMENTAL SCALE SQ SCH ×4 (09:57→21:14)
--- NOTE | 2017-08-05 17:28 | PD.CAR.PN ---
CVT Progress Note Subjective/Hospital Course: This is a 61-year-old male patient of Dr. Jason Pérez, Dr. Watson. initially seen 07/27/17 History of coronary artery disease, complaining of chest pain with exertion, that is chest tightness radiating to his back and his arm. If he stops the activity, this pain stops. Denies any diaphoresis, has been very active, but due to this chest discomfort, he has slowed down from any kind of exercise activity. He was seen back in January 2017 for chest pain. He underwent urgent catheter, showing severe single vessel disease of the right coronary artery. Successful angioplasty was carried out of the 90% in stent restenosis of the mid right coronary. At that time, if any recurrent stenosis, the recommendations were for bypass. He has had history of [place] in the past. He had stent placement to the RCA in 1999, mid RCA in 2009, PCI in January 2017. Due to this recurrent chest pain, the patient underwent recurrent cardiac catheterization, which showed no left main disease. The RCA had a 95% and 75% stenosis, with an EF of 60%. We were consulted to evaluate for coronary artery bypass graft x 1 to the RCA. PAST MEDICAL HISTORY: Includes coronary artery disease with prior SD, angina, hyperlipidemia, history of hepatitis A, multiple PCI and stenting, surgery 08/04: 1. Off-pump Coronary Artery Bypass Grafting x 1 with reverse saphenous vein graft to the Posterior Descending branch of the Right Coronary Artery (RPDA) 2. Left Leg Endoscopic Vein [place] 3. Intraoperative Vein Mapping extubated after surgery crystalloid 2400cc, 300cc EBL 08/05 up in chair, weaned off insulin pain controlled on ASA, plavix. statin ,BB will transfer to stepdown Objective: GENERAL: A&O x 3 SKIN: Warm and dry. prevena dressing to chest , erasmo wrap left leg HEAD: Normocephalic. EYES: No scleral icterus. No injection or drainage. NECK: Supple, trachea midline. No JVD or lymphadenopathy. CARDIOVASCULAR: Regular rate and rhythm without murmurs, gallops, or rubs. chest tube in place/ drained 110cc / 12hrs RESPIRATORY: Breath sounds equal bilaterally. No accessory muscle use. GASTROINTESTINAL: Abdomen soft, non-tender, nondistended. MUSCULOSKELETAL: No cyanosis, or edema. BACK: Nontender without obvious deformity. No CVA tenderness. Vital Signs Date Time Temp Pulse Resp B/P (MAP) Pulse Ox O2 Delivery O2 Flow Rate FiO2 08/05/17 17:00 84 08/05/17 16:00 74 08/05/17 15:34 98.8 91 18 122/70 (87) 96 08/05/17 15:33 96 Room Air 08/05/17 15:00 83 08/05/17 14:00 82 08/05/17 13:00 75 08/05/17 12:00 73 08/05/17 11:23 96 Room Air 08/05/17 11:22 98.4 86 18 121/69 (86) 96 Arterial Line 08/05/17 11:00 78 08/05/17 10:00 75 08/05/17 09:31 97 Nasal Cannula 2.00 08/05/17 07:00 98.4 80 16 128/83 (98) 97 123/60 (81) 08/05/17 07:00 80 08/05/17 07:00 97 Nasal Cannula 2.00 08/05/17 03:14 16 08/05/17 03:00 97 Nasal Cannula 2.00 08/05/17 03:00 98.9 85 16 130/68 (88) 97 139/56 (83) 08/05/17 03:00 83 08/05/17 01:06 16 08/05/17 00:28 16 08/04/17 23:00 98.2 78 16 104/67 (79) 98 119/57 (77) 08/04/17 23:00 78 08/04/17 23:00 98 Nasal Cannula 2.00 08/04/17 22:03 98.6 08/04/17 19:18 98 Nasal Cannula 3.00 08/04/17 19:00 98.3 79 16 107/70 (82) 99 129/62 (84) 08/04/17 19:00 79 08/04/17 19:00 99 Nasal Cannula 4.00 Result Diagram: 08/05/1741908/05/17419 Telemetry: NSR (1) Coronary artery disease (2) S/P CABG x 1 Plan: ASA, statin , plavix BB pulm toileting OOB ambulate CM to eval [facility] at discharge (3) Hyperlipidemia (4) Chest pain (5) Old SD (myocardial infarction) Angelika Man Aug 05, 2017 17:28
[2017-08-05] MEDS: SENNOSIDES 8.6 MG TAB PO SCH (21:13)
[2017-08-05] MEDS: ATORVASTATIN 80 MG TAB PO SCH (21:13)
[2017-08-05] MEDS: ZOLPIDEM TARTRATE 5 MG TAB PO PRN (21:13)
[2017-08-06] VITALS (30 sets, daily range): BP systolic 113–130; BP diastolic 71–82; PULSE 75–102; RESP 16–20; TEMP 98.3–98.7; O2SAT 95–99
[2017-08-06] MEDS: KETOROLAC TROMETHAMINE 30 MG/ML (IVP) VIAL IV PUSH PRN ×2 (00:27→06:05)
[2017-08-06] MEDS: ceFAZolin 2 GM PREMIX 50 ML IV SCH (00:28)
[2017-08-06] MEDS: INSULIN ASPART SUPPLEMENTAL SCALE SQ SCH ×6 (02:45→20:53)
[2017-08-06] MEDS: RESP: ALBUTEROL 2.5 MG/IPRATROPIUM 0.5 MG NEB (SCH) NEB ×7 (03:03→21:24)
[2017-08-06] MEDS: ACETAMINOPHEN/HYDROcodone 325 MG/5 MG TAB PO PRN ×4 (03:55→17:00)
[2017-08-06 04:26] LABS: AUTOMATED NEUTROPHIL # 4.8 TH/MM3 (1.8-7.7); BASOPHIL % 0.4 % (0.0-2.0); EOSINOPHIL % 0.3 % (0.0-4.0); HEMATOCRIT 25.6 % (39.0-51.0); LYMPH % 21.8 % (9.0-44.0); LYMPHOCYTE # 1.6 TH/MM3 (1.0-4.8); MEAN CELL VOLUME 94.6 FL (80.0-100.0); MEAN CORPUSCULAR HEMOGLOBIN 33.3 PG (27.0-34.0); MEAN CORPUSCULAR HGB CONC 35.1 % (32.0-36.0); MEAN PLATELET VOLUME 7.5 FL (7.0-11.0); MONO % 10.7 % (0.0-8.0); MONOCYTE # 0.8 TH/MM3 (0-0.9); NEUT % 66.8 % (16.0-70.0); PLATELET COUNT 181 TH/MM3 (150-450); RED BLOOD COUNT 2.71 MIL/MM3 (4.50-5.90); RED CELL DISTRIBUTION WIDTH 13.5 % (11.6-17.2); WHITE BLOOD COUNT 7.2 TH/MM3 (4.0-11.0)
[2017-08-06 04:46] LABS: BICARBONATE 27.7 MEQ/L (21.0-32.0); CALCIUM 8.3 MG/DL (8.5-10.1); CREATININE 0.97 MG/DL (0.60-1.30)
[2017-08-06] MEDS: PANTOPRAZOLE SOD 40 MG DELAYED RELEASE TAB PO SCH ×2 (06:00→06:05)
[2017-08-06] MEDS ORDERED: FENOFIBRATE 145 MG TAB PO SCH (09:00)
[2017-08-06] MEDS: MAGNESIUM HYDROXIDE SUSP 30 ML CUP PO SCH (09:05)
[2017-08-06] MEDS: POLYETHYLENE GLYCOL 17 GM PKG PO SCH (09:05)
[2017-08-06] MEDS: DOCUSATE SODIUM 100 MG CAP PO SCH ×2 (09:05→20:52)
[2017-08-06] MEDS: METOPROLOL TARTRATE 25 MG TAB PO SCH ×2 (09:05→20:52)
[2017-08-06] MEDS: CLOPIDOGREL 75 MG TAB PO SCH (09:05)
[2017-08-06] MEDS: SODIUM CHLORIDE 0.9% FLUSH 10 ML FLUSH IV FLUSH SCH ×2 (09:06→20:52)
[2017-08-06] MEDS: MULTIVITAMINS/MINERALS THERAPEUTIC TAB PO SCH (09:06)
[2017-08-06] MEDS: ASPIRIN 81 MG CHEW TAB PO SCH (09:06)
[2017-08-06] MEDS ORDERED: INFLUENZA VIRUS VACCINE (QUADRIVALENT) 0.5 ML SYR IM ONE (10:00)
--- NOTE | 2017-08-06 16:09 | PD.CAR.PN ---
CVT Progress Note Subjective/Hospital Course: This is a 61-year-old male patient of Dr. Jason Pérez, Dr. Watson. initially seen 07/27/17 History of coronary artery disease, complaining of chest pain with exertion, that is chest tightness radiating to his back and his arm. If he stops the activity, this pain stops. Denies any diaphoresis, has been very active, but due to this chest discomfort, he has slowed down from any kind of exercise activity. He was seen back in January 2017 for chest pain. He underwent urgent catheter, showing severe single vessel disease of the right coronary artery. Successful angioplasty was carried out of the 90% in stent restenosis of the mid right coronary. At that time, if any recurrent stenosis, the recommendations were for bypass. He has had history of [place] in the past. He had stent placement to the RCA in 1999, mid RCA in 2009, PCI in January 2017. Due to this recurrent chest pain, the patient underwent recurrent cardiac catheterization, which showed no left main disease. The RCA had a 95% and 75% stenosis, with an EF of 60%. We were consulted to evaluate for coronary artery bypass graft x 1 to the RCA. PAST MEDICAL HISTORY: Includes coronary artery disease with prior [place], angina, hyperlipidemia, history of hepatitis A, multiple PCI and stenting, surgery 08/04: 1. Off-pump Coronary Artery Bypass Grafting x 1 with reverse saphenous vein graft to the Posterior Descending branch of the Right Coronary Artery (RPDA) 2. Left Leg Endoscopic Vein [place] 3. Intraoperative Vein Mapping extubated after surgery crystalloid 2400cc, 300cc EBL 08/05 up in chair, weaned off insulin pain controlled on ASA, plavix. statin ,BB will transfer to stepdown 08/06 pt doing well chest tube removed without difficulty on room air increase BB eval for possible dc in am Objective: GENERAL: A&O x 3 SKIN: Warm and dry. prevena dressing to chest , incision intact to left leg HEAD: Normocephalic. EYES: No scleral icterus. No injection or drainage. NECK: Supple, trachea midline. No JVD or lymphadenopathy. CARDIOVASCULAR: Regular rate and rhythm without murmurs, gallops, or rubs. RESPIRATORY: Breath sounds equal bilaterally. No accessory muscle use. GASTROINTESTINAL: Abdomen soft, non-tender, nondistended. MUSCULOSKELETAL: No cyanosis, or edema. BACK: Nontender without obvious deformity. No CVA tenderness. Vital Signs Date Time Temp Pulse Resp B/P (MAP) Pulse Ox O2 Delivery O2 Flow Rate FiO2 08/06/17 16:00 91 08/06/17 15:17 98.3 92 16 130/78 (95) 96 08/06/17 15:17 97 Room Air 08/06/17 15:00 90 08/06/17 14:00 93 08/06/17 13:00 90 08/06/17 12:00 87 08/06/17 11:43 98.5 87 16 123/75 (91) 97 08/06/17 11:19 97 Room Air 08/06/17 11:00 81 08/06/17 10:00 75 08/06/17 09:00 80 08/06/17 08:25 97 21 08/06/17 08:00 95 08/06/17 07:47 97 Room Air 08/06/17 07:32 98.4 84 16 114/71 (85) 95 08/06/17 07:00 79 08/06/17 06:44 78 08/06/17 05:05 83 08/06/17 04:34 84 08/06/17 03:59 Room Air 08/06/17 03:59 98.3 88 19 113/74 (87) 96 08/06/17 03:25 98 08/06/17 02:40 80 08/06/17 01:43 89 08/06/17 00:09 100 08/05/17 23:40 Room Air 08/05/17 23:40 89 08/05/17 23:40 98.4 95 20 123/75 (91) 98 08/05/17 22:15 94 08/05/17 21:43 96 08/05/17 20:00 94 08/05/17 19:58 98 08/05/17 19:20 Room Air 08/05/17 19:20 98.0 91 19 122/75 (91) 96 08/05/17 19:20 84 08/05/17 18:00 82 08/05/17 17:00 84 Result Diagram: 08/06/179 08/06/17 034 Telemetry: NSR (1) Coronary artery disease (2) S/P CABG x 1 Plan: ASA, statin , plavix increase BB pulm toileting OOB ambulate CM to eval [facility] at discharge chest tube removed without difficulty (3) Hyperlipidemia Plan: on statin (4) Chest pain (5) Old [place] (myocardial infarction) Angelika Man Aug 06, 2017 16:09
--- NOTE | 2017-08-06 16:16 | HHI.FF ---
Face to Face Verification Diagnosis: (1) Coronary artery disease (2) Hyperlipidemia (3) Chest pain (4) S/P CABG x 1 Home Health Nursing Order: Signs/symptoms of disease process Medication education-adverse effect Wound care and dressing changes Nursing assessment with vital signs Instructions: Heart and Vascular Surgery patients *Special attention to sternal dressing Mandatory frequency Assess and evaluation, 4 days in a row The next week 3X week 2 times a week for 4 weeks 1 time a week for 5 weeks Schedule Heart and Vascular patients for full 60 day certification period Initial visit Review Open Heart Surgery Discharge Instructions (Sternal precautions, Activity, Elastic hose, Incision care, Driving, Incentive spirometry, Smoking, [place], Work and other) Need Betadine to paint incision Medication reconciliation Importance of follow up care/ check on appointments Make calendar record temperature daily When to call [facility] at Home nurse, review instructions, phone list Incentive Spirometry, demonstration Visit 1- Begin discharge instruction for patient family and/ or caregiver using teach back method- Signs and symptoms of infection Disease characteristics Medicines and side effects Foods and nutrition/ appetite Infection control/ hand washing/ hygiene Visit 2- Continue teaching Discharge instructions- include additional information on smoking cessation , sternal dressing (sternal vac) Visit 3- Continue teaching- Cough and deep breathing, incision monitoring. Choose my plate Visit 4- Continue teaching- Discuss limitations Discuss how they are feeling Discuss progress toward goals Remaining visits- continue teaching and monitoring For any questions please call : Wednesday 8am-5pm Heart & Vascular Surgery Office ( Dr. Castle & Dr. Betancourt), After Hours / Nights (5pm -8am) Weekends and Holidays Please call [facility] Cardiac Intermediate Care Unit (CIC) Charge Nurse PREVENA Single Use Negative Wound Therapy System Caregiver Instruction Sheet 1. A Prevena dressing system was applied to the chest incision during surgery , to promote wound healing. It works via a suction device (negative pressure wound therapy) to remove low to moderate levels of exudate (drainage) and infectious materials. We recommend that the device stay in place for up to seven days, from day of surgery. 2. Day of Surgery__3/ Day of Removal ___/ 3. The dressing should only be removed by a health student career development specialist. Please arrange removal of device to coincide with Home Health visit and or with Nursing staff at Rehab 4. If skin reddening or irritation of skin occurs, or excessive drainage, please notify the Cardiovascular Surgeons office at [phone]. 5. Light showering is permissible; however the pump should be disconnected and placed in safe location, where it will not get wet. The dressing should not be exposed to direct spray or submerged in water. No bath tub / shower only. Ensure the end of the tubing attached to the dressing is facing down so that water does not enter the top of the tube. 6. To remove Prevena dressing: press purple button to turn off device / remove the suction. Then disconnect the tubing from the pump. The fixation strips should be stretched away from the skin and the dressing lifted at one corner and peeled back until it has been fully removed. 7. After removal, it is ok to shower daily using liquid dial soap and clean wash cloth, rinse and pat dry, and leave incision open to air dry. For any concerns regarding Prevena dressing, and or wounds, please contact Fabiola Frances, patient navigator at [phone] or notify the Cardiovascular Surgeons office at [phone]. Incentive spirometry Q1 hr x 10, while awake, also use acapella device hourly whole awake Sternal Breast Bone Precautions: NO pushing or pulling, ( pt must use sternal pillow to support chest with all activities and with coughing ( takes up to 3 months breast bone to heal ) Daily incision care: ok to shower daily, no tub bath. Wash all incisions with liquid dial soap, clean wash cloth to each site, rinse and pat dry. Observe for any signs of infection, such as drainage which is dark yellow, bass, green or foul smelling. Immediately report to the surgeon any drainage from the chest incision, or legs, and for any abnormal drainage from the chest tube sites. Notify surgeon if any temp >101.5 degrees F. When specialty dressing removed/ or if you do not have one, continue to shower daily as above, then rinse and pat incision dry and paint with betadine daily x 5 days. Allow steri strips to fall off if you have any. Avoid lotions, creams, salves, oils, etc. for the first month Please see attached forms for additional instructions regarding post Open Heart specialty wound vacuum dressings. RONNIE or Prevena , Dressing to be removed by Nursing staff on ___08/11/17____ F/U appointment: as per DC instructions: PCP in 2 weeks, CV surgeon 2 weeks, Manager Transition 3-4 weeks For any questions regarding incisions/ dressing / meds / post op care or above Symptoms, Wednesday 8am-5pm Heart & Vascular Surgery Office ( Dr. Castle & Dr. Betancourt), After Hours / Nights (5pm -8am) Weekends and Holidays Please call [facility] Cardiac Intermediate Care Unit (CIC) Charge Nurse I have seen patient Roger Tobias on 08/06/17. My clinical findings support the need for the requested home health care services because: Deconditioned w/ increased weakness I certify that my clinical findings support that this patient is homebound because: Post-op weakness Angelika Man Aug 06, 2017 16:16
--- NOTE | 2017-08-06 16:19 | HHI.DS ---
Discharge Summary Admission Date Aug 04, 2017 at 10:56 Discharge Date: Aug 07, 2017 Admitting Diagnosis chest pain, CAD (1) Chest pain Diagnosis: Principal ICD Codes: R07.9 - Chest pain, unspecified (2) Hyperlipidemia Diagnosis: Principal ICD Codes: E78.5 - Hyperlipidemia, unspecified (3) Coronary artery disease Diagnosis: Principal ICD Codes: I25.10 - Atherosclerotic heart disease of lummi coronary artery without angina pectoris (4) S/P CABG x 1 Diagnosis: Secondary ICD Codes: Z95.1 - Presence of aortocoronary bypass graft Procedures 08/04 1. Off-pump Coronary Artery Bypass Grafting x 1 with reverse saphenous vein graft to the Posterior Descending branch of the Right Coronary Artery (RPDA) 2. Left Leg Endoscopic Vein Rincon 3. Intraoperative Vein Mapping Brief History This is a 61-year-old male patient of Dr. Jason Pérez, Dr. Watson. initially seen 07/27/17 History of coronary artery disease, complaining of chest pain with exertion, that is chest tightness radiating to his back and his arm. If he stops the activity, this pain stops. Denies any diaphoresis, has been very active, but due to this chest discomfort, he has slowed down from any kind of exercise activity. He was seen back in January 2017 for chest pain. He underwent urgent catheter, showing severe single vessel disease of the right coronary artery. Successful angioplasty was carried out of the 90% in stent restenosis of the mid right coronary. At that time, if any recurrent stenosis, the recommendations were for bypass. He has had history of SD in the past. He had stent placement to the RCA in 1999, mid RCA in 2009, PCI in January 2017. Due to this recurrent chest pain, the patient underwent recurrent cardiac catheterization, which showed no left main disease. The RCA had a 95% and 75% stenosis, with an EF of 60%. We were consulted to evaluate for coronary artery bypass graft x 1 to the RCA. PAST MEDICAL HISTORY: Includes coronary artery disease with prior SD, angina, hyperlipidemia, history of hepatitis A, multiple PCI and stenting, CBC/BMP: 08/06/17 0349 08/06/17 0349 Significant Findings Laboratory Tests Test 08/05/17 04:20 08/06/17 03:49 Red Blood Count 3.30 MIL/MM3 (4.50-5.90) 2.71 MIL/MM3 (4.50-5.90) Hemoglobin 10.9 GM/DL (13.0-17.0) 9.0 GM/DL (13.0-17.0) Hematocrit 30.8 % (39.0-51.0) 25.6 % (39.0-51.0) Calcium Level 8.4 MG/DL (8.5-10.1) 8.3 MG/DL (8.5-10.1) Monocytes (%) (Auto) 10.7 % (0.0-8.0) Random Glucose 131 MG/DL (74-106) Estimat Glomerular Filtration Rate 78 ML/MIN (>89) Imaging Last Impressions Chest X-Ray 08/05/17 0500 Signed Impressions: Service Date/Time: July 04:42 - CONCLUSION: Mild patchy infiltrates left lung base. Bobby Kaur MD PE at Discharge GENERAL: A&O x 3 SKIN: Warm and dry. prevena dressing to chest / incision intact left leg HEAD: Normocephalic. EYES: No scleral icterus. No injection or drainage. NECK: Supple, trachea midline. No JVD or lymphadenopathy. CARDIOVASCULAR: Regular rate and rhythm without murmurs, gallops, or rubs. RESPIRATORY: Breath sounds equal bilaterally. No accessory muscle use. GASTROINTESTINAL: Abdomen soft, non-tender, nondistended. MUSCULOSKELETAL: No cyanosis, or edema. BACK: Nontender without obvious deformity. No CVA tenderness. Hospital Course surgery 08/04: 1. Off-pump Coronary Artery Bypass Grafting x 1 with reverse saphenous vein graft to the Posterior Descending branch of the Right Coronary Artery (RPDA) 2. Left Leg Endoscopic Vein Rincon 3. Intraoperative Vein Mapping extubated after surgery crystalloid 2400cc, 300cc EBL 08/05 up in chair, weaned off insulin pain controlled on ASA, plavix. statin ,BB will transfer to stepdown 08/06 doing well, chest tube removed on room air eval for dc in am remains in NSR Pt Condition on Discharge: Good Discharge Disposition: Disch w/ Home Health Serv Discharge Instructions DIET: Follow Instructions for: Heart Healthy Diet Activities you can perform: Full Weight Bearing, Shower Only-No Bath Activities to avoid: Prolonged Standing, Driving Additional Activity Instructio: no lifting > 8 lbs or gallonof milk Follow up Referrals: Cardiology - 4 Weeks with Celina Watson MD PCP Follow-up - 2 Weeks with Jason Pérez MD Surgical - 2 Weeks with Angelika Man Jacqueline R. ARNP Aug 06, 2017 16:19
[2017-08-06] MEDS ORDERED: DOCU1CAP39 PO (16:21)
[2017-08-06] MEDS ORDERED: METO25TA3 PO (16:21)
[2017-08-06] MEDS ORDERED: HYDR-3516 PO (16:21)
[2017-08-06] MEDS ORDERED: THERM PO (16:21)
[2017-08-06] MEDS: SENNOSIDES 8.6 MG TAB PO SCH (20:52)
[2017-08-06] MEDS: ATORVASTATIN 80 MG TAB PO SCH (20:52)
[2017-08-06] MEDS: ZOLPIDEM TARTRATE 5 MG TAB PO PRN (20:54)
[2017-08-07] VITALS (10 sets, daily range): BP systolic 114–126; BP diastolic 66–83; PULSE 94–106; RESP 18–19; TEMP 98.1–98.2; O2SAT 95–97
[2017-08-07] MEDS: RESP: ALBUTEROL 2.5 MG/IPRATROPIUM 0.5 MG NEB (SCH) NEB ×3 (02:38→10:00)
--- NOTE | 2017-08-07 04:29 | RADRPT ---
EXAM DATE/TIME: 08/07/2017 04:01 [place] COMPARISON: CHEST SINGLE AP, August 05, 2017, 4:42. INDICATIONS : Shortness of breath, followup patchy infiltrates.. MEDICAL HISTORY : Myocardial infarction. Hypercholesterolemia. Sleep apnea SURGICAL HISTORY : CABG. Appendectomy. Coronary artery stent. ENCOUNTER: Subsequent ACUITY: 4 - 6 days PAIN SCORE: 3/10 LOCATION: Bilateral chest FINDINGS: A single AP semierect view of the chest was obtained and again demonstrates the patient is status pos t median sternotomy. There is no pneumothorax. The right internal jugular central venous line remains in place. There is discoid atelectasis or scarring at the right lung base. There are no new confluen t infiltrates or effusions. The heart size is within normal limits and there is no perihilar edema. CONCLUSION: 1. Discoid atelectasis or scarring remains at the right lung base. 2. No pulmonary edema or new infiltrates. Ramana Dawkins MD on August 07, 2017 at 4:25 Board Certified Radiologist. This report was verified electronically.
[2017-08-07] MEDS: PANTOPRAZOLE SOD 40 MG DELAYED RELEASE TAB PO SCH (05:29)
[2017-08-07] MEDS: ACETAMINOPHEN/HYDROcodone 325 MG/5 MG TAB PO PRN (05:31)
[2017-08-07] MEDS: MAGNESIUM HYDROXIDE SUSP 30 ML CUP PO SCH (09:00)
[2017-08-07] MEDS: ASPIRIN 81 MG CHEW TAB PO SCH (09:00)
[2017-08-07] MEDS: MULTIVITAMINS/MINERALS THERAPEUTIC TAB PO SCH (09:00)
[2017-08-07] MEDS: METOPROLOL TARTRATE 25 MG TAB PO SCH (09:00)
[2017-08-07] MEDS: DOCUSATE SODIUM 100 MG CAP PO SCH (09:00)
[2017-08-07] MEDS: SODIUM CHLORIDE 0.9% FLUSH 10 ML FLUSH IV FLUSH SCH (09:00)
[2017-08-07] MEDS: CLOPIDOGREL 75 MG TAB PO SCH (09:00)
[2017-08-07] MEDS: POLYETHYLENE GLYCOL 17 GM PKG PO SCH (09:01)
[2017-08-07] MEDS: INSULIN ASPART SUPPLEMENTAL SCALE SQ SCH (09:02)
[2017-08-08] MEDS ORDERED: PROPOFOL 500 MG/50 ML INJ 50 ML ONE (19:27)
== END 2017-08-07 10:10 | disposition home health service (06) | DRG 236 ==
LOC: HSDC 05:26 → EDSTATUS 07:30 → HSDI 10:56 → HCVI 11:49 → HCPC 08-05 10:23
PROVIDERS: ADMIT Thoracic Surgery (Cardiothoracic Vascular Surgery); ATTEND Thoracic Surgery (Cardiothoracic Vascular Surgery)
PROC: 021009W Bypass Coronary Artery, One Artery from Aorta with Autologous Venous Tissue, Open Approach (ICD-10-PCS; principal; 2017-08-04 07:15)
PROC: 06BQ4ZZ Excision of Left Saphenous Vein, Percutaneous Endoscopic Approach (ICD-10-PCS; 2017-08-04 07:15)
DX: I25.118 Atherosclerotic heart disease of native coronary artery with other forms of angina pectoris (principal); E78.5 Hyperlipidemia, unspecified; I25.2 Old myocardial infarction; Z95.5 Presence of coronary angioplasty implant and graft; Z86.19 Personal history of other infectious and parasitic diseases; Z23 Encounter for immunization
CPT/HCPCS: 71045; 76937; 80048; 82948; 83735; 85025; 85027; 86850; 86900; 86901; 86920; 90686; 93005; 94002; 94150; 94640; 94664; 94667; 94668; C1768; J0131; J0171; J0690; J1644; J1815; J1817; J1885; J2250; J2370; J2405; J2440; J2720; J3010; J3370; J3475; J3480; J7030; J7120; Q2038